=== PATIENT | male | born 1950 | race Caucasian/White ===

== ENCOUNTER 2015-12-20 12:55 | Outpatient (CLI) | payer BC ==
[~2015-12-20 12:55] MED LIST: ASP81CT PO; CARV3.122 PO; GBPN300C PO; LEVO125T PO; OMEP20TA2 PO; RAMI5CAP PO
--- OUTSIDE RECORDS SUMMARY | 2015-12-20 13:03 | XMS REPORT | Continuity of Care Document ---
Author Author [facility] Organization [facility] Address Unknown Phone Unavailable Support Name Relationship Address Phone DAVE HOLDER MD Caregiver [address], [address] [place] [address] JYOTSNA ALPHONSO Charmaine Caregiver [address] [place] [address] ELIUD HUMPHRIES Next Of Kin [address] [place] [id number] Insurance Providers Payer Name Policy Number Subscriber Name Relationship [facility] [id number] Taylor Humphries 18 Self / Same As Patient Advance Directives Directive Response Recorded Date/Time Advance Directives No 10/13/14 7:25am Health Care Power of Beater Out No 10/13/14 7:25am Organ Donor N STATES HE'S DONATING BODY TO [facility] 10/13/14 7:25am Resuscitation Status Full Code 10/13/14 7:25am Problems No known problems or medical conditions. Medications Medication Dose Route Sig Days/Qty Instructions Order Date Discontinued Date Status Aspirin 81 Mg PO DAILY 10/15/12 10/13/14 Discontinued Omeprazole 20 Mg PO DAILY 10/15/12 Active Carvedilol (Coreg) 1 Each PO TWICE A DAY 10/15/12 Active Levothyroxine Sodium 1 Each PO DAILY 10/15/12 Active Gabapentin 300 Mg PO TWICE A DAY 10/15/12 10/11/14 Discontinued Ramipril 5 Mg PO DAILY 10/11/14 Active Social History Social History Problem Response Recorded Date/Time Recent Foreign Travel Yes 10/13/2014 7:33am Smoking Status Never a Smoker 10/13/2014 7:30am Do you dip or chew tobacco? No 10/13/2014 7:30am Query Response Start Date Stop Date Smoking Status Never a Smoker Hospital Discharge Instructions No hospital discharge instructions. Plan of Care No plan of care. Functional Status No functional status results. Allergies, Adverse Reactions, Alerts Allergen Type Severity Reaction Status Last Updated NKANo Known Allergies Allergy Unknown Active 06/30/06 Immunizations Name Given Type Date of Pneumonia Vaccine 10/13/12 Historical Date of Influenza Vaccine 09/13/14 Historical Vital Signs Acute Vital Signs Vital Response Date/Time Temperature (Fahrenheit) 96.9 degrees F (97.6 - 99.5) Temperature (Calculated Celsius) 36.10688 degrees C (36.4 - 37.5) Temperature Source Tympanic Pulse Rate (adult) 78 bpm (60 - 90) Respiratory Rate 18 bpm (12 - 24) O2 Sat by Pulse Oximetry 84 % (88 - 100) Blood Pressure 121/88 mm Hg Pain Pain Intensity 0 Height (Feet) 5 feet Height (Inches) 9.00 inches Height (Calculated Centimeters) 175.446695 cm Weight (Pounds) 188 pounds Weight (Calculated Grams) 24196.366 gm Weight (Calculated Kilograms) 85.979982 kilograms Calculated BMI 27.76 Results No known relevant diagnostic tests, laboratory data and/or discharge summary. Procedures Procedure Status Date Provider(s) Esophagogastroduodenoscopy (EGD) with dilation completed 10/13/14 DAVE HOLDER MD Diagnostic colonoscopy completed 10/13/14 DAVE HOLDER MD Encounters Encounter Location Date/Time Registered [facility] Day [facility] 10/13/14 7:03am Registered Clinic [facility] 10/11/14 5:54am
[2015-12-20 13:11] LABS: BASOPHILS # (AUTO) 0.1 10^3/uL (0.0-0.1); BASOPHILS % (AUTO) 1 % (0-10); EOSINOPHILS # (AUTO) 0.2 10^3/uL (0.0-0.3); EOSINOPHILS % (AUTO) 3 % (0-10); LYMPHOCYTES # (AUTO) 2.7 X 10^3 (1.0-4.0); LYMPHOCYTES % (AUTO) 31 % (12-44); MEAN CORPUSCULAR HEMOGLOBIN 30 PG (25-34); MEAN CORPUSCULAR HGB CONC 34 G/DL (32-36); MEAN CORPUSCULAR VOLUME 88 FL (80-99); MEAN PLATELET VOLUME 9.5 FL (7.4-10.4); MONOCYTES # (AUTO) 1.4 X 10^3 (0.0-1.0); MONOCYTES % (AUTO) 15 % (0-12); NEUTROPHILS # (AUTO) 4.4 X 10^3 (1.8-7.8); NEUTROPHILS % (AUTO) 50 % (42-75); PLATELET COUNT 336 10^3/uL (130-400); RED BLOOD COUNT 5.51 10^6/uL (4.35-5.85); RED CELL DISTRIBUTION WIDTH 14.8 % (10.0-14.5); WHITE BLOOD COUNT 8.8 10^3/uL (4.3-11.0)
[2015-12-20 14:04] LABS: ALANINE AMINOTRANSFERASE 24 U/L (0-55); ALBUMIN 3.9 G/DL (3.2-4.5); ANION GAP 9 MMOL/L (5-14); ASPARTATE AMINO TRANSFERASE 23 U/L (5-34); BILIRUBIN,TOTAL 0.4 MG/DL (0.1-1.0); BLOOD UREA NITROGEN 12 MG/DL (7-18); BUN/CREATININE RATIO 12; CALCIUM 8.9 MG/DL (8.5-10.1); CARBON DIOXIDE 28 MMOL/L (21-32); CHLORIDE 103 MMOL/L (98-107); CREATININE SERUM 1.04 MG/DL (0.60-1.30); GFR ESTIMATED > 60; GLUCOSE 99 MG/DL (70-105); LACTATE DEHYDROGENASE 241 U/L (125-220); POTASSIUM 4.1 MMOL/L (3.6-5.0); SODIUM 140 MMOL/L (135-145); TOTAL PROTEIN 7.3 G/DL (6.4-8.2)
== END 2016-12-15 08:46 ==
LOC: ONC 12:55
PROVIDERS: ATTEND Internal Medicine Hematology & Oncology
DX: C81.99 Hodgkin lymphoma, unspecified, extranodal and solid organ sites (principal); K22.70 Barrett's esophagus without dysplasia; I10 Essential (primary) hypertension; E78.5 Hyperlipidemia, unspecified; E03.9 Hypothyroidism, unspecified; Z79.899 Other long term (current) drug therapy
CPT/HCPCS: 36415; 80053; 83615; 85025; 99213

== ENCOUNTER → 2016-12-15 | Outpatient (CLI) | payer MEDICARE ==
--- OUTSIDE RECORDS SUMMARY | 2016-12-15 08:52 | XMS REPORT | Continuity of Care Document ---
Author Author [facility] Organization [facility] Address Unknown Phone Unavailable Care Team Providers Care Military Communications Specialist Name Role Phone DAVE HOLDER MD PCP Insurance Providers Payer Name Policy Number Subscriber Name Relationship [facility] [id number] Taylor Humphries 18 Self / Same As Patient Advance Directives Directive Response Recorded Date/Time Advance Directives No 07/20/15 7:30am Health Care Power of Lock And Dam Equipment Repairer No 07/20/15 7:30am Organ Donor N STATES HE'S DONATING BODY TO [facility] 07/20/15 7:30am Problems No problem information available. Medications Current Home Medications Medication Dose Units Route Directions Days/Qty Instructions Start Date Omeprazole 20 Mg 20 Mg Oral Daily 10/15/12 Carvedilol (Coreg) 3.125 Mg 1 Each Oral Twice A Day 10/15/12 Levothyroxine Sodium 125 Mcg 1 Each Oral Daily 10/15/12 Ramipril 5 Mg 5 Mg Oral Daily 10/11/14 Past Home Medications Medication Directions Ordered Status Aspirin 81 Mg Chew, 81 Mg Oral Daily 10/15/12 Discontinued Gabapentin 300 Mg Cap, 300 Mg Oral Twice A Day 10/15/12 Discontinued Social History Social History Problem Response Recorded Date/Time Recent Foreign Travel N SEE [place] 12/20/2015 12:54pm Do you dip or chew tobacco? No 07/20/2015 7:27am Hospital Discharge Instructions No hospital discharge instructions. Plan of Care Discharge Date 12/15/16 8:46am Prescriptions See Medication Section Functional Status No functional status results. Allergies, Adverse Reactions, Alerts Allergen Type Severity Reaction Status Last Updated NKANo Known Allergies Allergy Unknown Active 06/30/06 Immunizations No immunization records. Vital Signs No known vital signs results. Results Laboratory Results Test Name Result Units Flags Reference Collection Date/Time Result Date/ Time Comments White Blood Count 8.8 10^3/uL 4.3-11.0 12/20/2015 1:07pm 12/20/2015 1: 15pm Red Blood Count 5.51 10^6/uL 4.35-5.85 12/20/2015 1:07pm 12/20/2015 1: 15pm Hemoglobin 16.3 G/DL 13.3-17.7 12/20/2015 1:07pm 12/20/2015 1:15pm Hematocrit 48 % 40-54 12/20/2015 1:pm 12/20/2015 1:15pm Mean Corpuscular Volume 88 FL 80-99 12/20/2015 1:07pm 12/20/2015 1: 15pm Mean Corpuscular Hemoglobin 30 PG 25-34 12/20/2015 1:07pm 12/20/2015 1: 15pm Mean Corpuscular Hemoglobin Concent 34 G/DL 32-36 12/20/2015 1:07pm 09/2016 1:15pm Red Cell Distribution Width 14.8 % H 10.0-14.5 12/20/2015 1:07pm 2015 1:15pm Platelet Count 336 10^3/uL 130-400 12/20/2015 1:07pm 12/20/2015 1:15pm Mean Platelet Volume 9.5 FL 7.4-10.4 12/20/2015 1:pm 12/20/2015 1: 15pm Neutrophils (%) (Auto) 50 % 42-75 12/20/2015 1:pm 12/20/2015 1:15pm Lymphocytes (%) (Auto) 31 % 12-44 12/20/2015 1:07pm 12/20/2015 1:15pm Monocytes (%) (Auto) 15 % H 0-12 12/20/2015 1:07pm 12/20/2015 1:15pm Eosinophils (%) (Auto) 3 % 0-10 12/20/2015 1:07pm 12/20/2015 1:15pm Basophils (%) (Auto) 1 % 0-10 12/20/2015 1:07pm 12/20/2015 1:15pm Neutrophils # (Auto) 4.4 X 10^3 1.8-7.8 12/20/2015 1:07pm 12/20/2015 1: 15pm Lymphocytes # (Auto) 2.7 X 10^3 1.0-4.0 12/20/2015 1:07pm 12/20/2015 1: 15pm Monocytes # (Auto) 1.4 X 10^3 H 0.0-1.0 12/20/2015 1:07pm 12/20/2015 1: 15pm Eosinophils # (Auto) 0.2 10^3/uL 0.0-0.3 12/20/2015 1:07pm 12/20/2015 1 :15pm Basophils # (Auto) 0.1 10^3/uL 0.0-0.1 12/20/2015 1:07pm 12/20/2015 1: 15pm Sodium Level 140 MMOL/L 135-145 12/20/2015 1:07pm 12/20/2015 2:04pm Potassium Level 4.1 MMOL/L 3.6-5.0 12/20/2015 1:07pm 12/20/2015 2:04pm Chloride Level 103 MMOL/L 98-107 12/20/2015 1:07pm 12/20/2015 2:04pm Carbon Dioxide Level 28 MMOL/L 21-32 12/20/2015 1:07pm 12/20/2015 2: 04pm Anion Gap 9 MMOL/L 5-14 12/20/2015 1:07pm 12/20/2015 2:04pm Blood Urea Nitrogen 12 MG/DL 7-18 12/20/2015 1:07pm 12/20/2015 2:04pm Creatinine 1.04 MG/DL 0.60-1.30 12/20/2015 1:07pm 12/20/2015 2:04pm BUN/Creatinine Ratio 12 12/20/2015 1:07pm 12/20/2015 2:04pm Estimat Glomerular Filtration Rate > 60 12/20/2015 1:07pm 2015 2:04pm GFR INTERPRETIVE DATA UNITS FOR ESTIMATED GFR (eGFR): mL/min/1.73 M2 REFERENCE RANGE FOR ESTIMATED GFR (eGFR) eGFR NORMAL eGFR >60 MODERATELY DECREASED eGFR 30-59 SEVERLY DECREASED eGFR 15-29 KIDNEY FAILURE <15 (OR DIALYSIS) Glucose Level 99 MG/DL 70-105 12/20/2015 1:07pm 12/20/2015 2:04pm Calcium Level 8.9 MG/DL 8.5-10.1 12/20/2015 1:07pm 12/20/2015 2:04pm Total Bilirubin 0.4 MG/DL 0.1-1.0 12/20/2015 1:07pm 12/20/2015 2:04pm Alkaline Phosphatase 85 U/L 40-136 12/20/2015 1:07pm 12/20/2015 2:04pm Aspartate Amino Transf (AST/SGOT) 23 U/L 5-34 12/20/2015 1:07pm 2015 2:04pm Alanine Aminotransferase (ALT/SGPT) 24 U/L 0-55 12/20/2015 1:07pm 12/20 2:04pm Lactate Dehydrogenase 241 U/L H 125-220 12/20/2015 1:07pm 12/20/2015 2: 04pm Total Protein 7.3 G/DL 6.4-8.2 12/20/2015 1:07pm 12/20/2015 2:04pm Albumin 3.9 G/DL 3.2-4.5 12/20/2015 1:07pm 12/20/2015 2:04pm Procedures No known history of procedures. Encounters Encounter Location Arrival/Admit Date Discharge/Depart Date Attending Provider Departed Clinic [facility] 12/20/15 12:55pm 12/15/16 8: 46am ALPHONSO GOYAL
[2016-12-15 09:05] LABS: BASOPHILS # (AUTO) 0.1 10^3/uL (0.0-0.1); BASOPHILS % (AUTO) 1 % (0-10); EOSINOPHILS # (AUTO) 0.1 10^3/uL (0.0-0.3); EOSINOPHILS % (AUTO) 2 % (0-10); LYMPHOCYTES # (AUTO) 1.9 X 10^3 (1.0-4.0); LYMPHOCYTES % (AUTO) 38 % (12-44); MEAN CORPUSCULAR HEMOGLOBIN 30 PG (25-34); MEAN CORPUSCULAR HGB CONC 34 G/DL (32-36); MEAN CORPUSCULAR VOLUME 89 FL (80-99); MEAN PLATELET VOLUME 9.4 FL (7.4-10.4); MONOCYTES # (AUTO) 0.8 X 10^3 (0.0-1.0); MONOCYTES % (AUTO) 17 % (0-12); NEUTROPHILS # (AUTO) 2.1 X 10^3 (1.8-7.8); NEUTROPHILS % (AUTO) 42 % (42-75); PLATELET COUNT 303 10^3/uL (130-400); RED BLOOD COUNT 4.97 10^6/uL (4.35-5.85); RED CELL DISTRIBUTION WIDTH 14.8 % (10.0-14.5); WHITE BLOOD COUNT 4.9 10^3/uL (4.3-11.0)
[2016-12-15 09:37] LABS: ALANINE AMINOTRANSFERASE 25 U/L (0-55); ALBUMIN 3.7 G/DL (3.2-4.5); ANION GAP 8 MMOL/L (5-14); ASPARTATE AMINO TRANSFERASE 28 U/L (5-34); BILIRUBIN,TOTAL 0.5 MG/DL (0.1-1.0); BLOOD UREA NITROGEN 13 MG/DL (7-18); BUN/CREATININE RATIO 16; CALCIUM 8.7 MG/DL (8.5-10.1); CARBON DIOXIDE 26 MMOL/L (21-32); CHLORIDE 104 MMOL/L (98-107); CREATININE SERUM 0.79 MG/DL (0.60-1.30); GFR ESTIMATED > 60; GLUCOSE 82 MG/DL (70-105); LACTATE DEHYDROGENASE 197 U/L (125-220); POTASSIUM 4.1 MMOL/L (3.6-5.0); SODIUM 138 MMOL/L (135-145); TOTAL PROTEIN 6.7 G/DL (6.4-8.2)
== END ==
LOC: ONC 08:49
PROVIDERS: ATTEND Internal Medicine Hematology & Oncology
DX: C81.99 Hodgkin lymphoma, unspecified, extranodal and solid organ sites (principal); K22.70 Barrett's esophagus without dysplasia; I10 Essential (primary) hypertension; E78.5 Hyperlipidemia, unspecified; E03.9 Hypothyroidism, unspecified; Z79.899 Other long term (current) drug therapy
CPT/HCPCS: 36415; 80053; 83615; 85025; 99213

== ENCOUNTER → 2016-12-18 | Outpatient (CLI) | payer MEDICARE, OTHER ==
--- OUTSIDE RECORDS SUMMARY | 2016-12-18 05:41 | XMS REPORT | Continuity of Care Document ---
Author Author [facility] Organization [facility] Address Unknown Phone Unavailable Care Team Providers Care Active Directory Administrator Name Role Phone DAVE HOLDER MD PCP Insurance Providers Payer Name Policy Number Subscriber Name Relationship [facility] [id number] Taylor Humphries 18 Self / Same As Patient Advance Directives Directive Response Recorded Date/Time Advance Directives No 07/20/15 7:30am Health Care Power of Speech Pathology Supervisor No 07/20/15 7:30am Organ Donor N STATES [...] Discharge/Depart Date Attending Provider Departed Clinic [facility] 12/20/15 12:55pm 12/15/16 8: 46am ALPHONSO GOYAL
== END ==
LOC: PREOP 05:38
PROVIDERS: ATTEND Internal Medicine
DX: Z01.818 Encounter for other preprocedural examination (principal); K22.70 Barrett's esophagus without dysplasia

== ENCOUNTER → 2016-12-19 | Day surgery (SDC) | payer MEDICARE, OTHER ==
[~2016-12-19] VITALS: Ht 175.3 cm; Wt 85.3 kg
[~2016-12-19] MED LIST changes: +D5 LR IV SOLUTION 1,000 ML IV ONE; +D5 LR IV SOLUTION 1,000 ML IV STA; +FLUMAZENIL (ROMAZICON) 0.1 MG/ML 5 ML VIAL INJ PRN; +HURRICAINE EXT TUBE (BENZOCAINE) ONE; +HURRICAINE EXT TUBE (BENZOCAINE) XX PRN; +LIDOCAINE JELLY 2% (XYLOCAINE) 5 ML TUBE MM PRN; +LIDOCAINE JELLY 2% (XYLOCAINE) 5 ML TUBE ONE; +MIDAZOLAM 2 MG/2 ML (VERSED) VIAL ONE; +NALOXONE 0.4 MG/ML 1 ML (NARCAN) VIAL IVP PRN; +fentaNYL INJECTION 100 MCG/2 ML AMP ONE
--- OUTSIDE RECORDS SUMMARY | 2016-12-19 09:43 | XMS REPORT | Continuity of Care Document ---
Author Author [facility] Organization [facility] Address Unknown Phone Unavailable Care Team Providers Care Cardio Clinician Name Role Phone DAVE HOLDER MD PCP Insurance Providers Payer Name Policy Number Subscriber Name Relationship [facility] [id number] Taylor Humphries 18 Self / Same As Patient Advance Directives Directive Response Recorded Date/Time Advance Directives No 07/20/15 7:30am Health Care Power of Map Compiler No 07/20/15 7:30am Organ Donor N STATES [...] Discharge/Depart Date Attending Provider Departed Clinic [facility] 12/20/15 12:55pm 12/15/16 8: 46am ALPHONSO GOYAL
--- OUTSIDE RECORDS SUMMARY | 2016-12-19 09:44 | XMS REPORT | Continuity of Care Document ---
Author Author [facility] Organization [facility] Address Unknown Phone Unavailable Care Team Providers Care Sales Clerk Supervisor Name Role Phone DAVE HOLDER MD PCP Insurance Providers Payer Name Policy Number Subscriber Name Relationship [facility] [id number] Taylor Humphries 18 Self / Same As Patient Advance Directives Directive Response Recorded Date/Time Advance Directives No 07/20/15 7:30am Health Care Power of Corrective Therapy Aide No 07/20/15 7:30am Organ Donor N STATES [...] Discharge/Depart Date Attending Provider Departed Clinic [facility] 12/20/15 12:55pm 12/15/16 8: 46am ALPHONSO GOYAL
--- NOTE | 2016-12-19 09:48 | HISTORY AND PHYSICAL ---
DICTATING PHYSICIAN: Dr. Jansen DATE OF ADMISSION: 12/19/2016 Mr. Esquivel is a 66-year-old white male undergoing EGD for surveillance due to history of long segment Valdovinos's esophagus. Last screening study was done over a year and a half ago. At times he has had low grade dysplasia. He has never been noted to have high grade dysplasia. He reports that he has had some fatigue and wanted to know if it had due to a switch to generic thyroid preparation. He has a history of Hodgkin's lymphoma with past mantle radiation. He had initial disease several decades ago with mantle radiation several decades ago, likely resulting in his hypothyroidism. He actually had recurrence of Hodgkin's disease in 2006 diagnosed with colon recurrence. He last underwent colonoscopy in October, that was unremarkable. He denies dysphasia or odynophagia and reports as long as he takes his proton pump inhibitor therapy in the form of omeprazole 20 mg b.i.d. he has no heartburn symptoms. PHYSICAL EXAMINATION: Physical examination reveals a well-appearing white male in no acute distress. NECK: Reveals no JVD, adenopathy or bruits. CHEST: Clear. CV: Reveals a regular rate and rhythm without murmur, S3 or S4. ABDOMEN: Soft, supple without masses, organomegaly or tenderness. EXTREMITIES: Reveal no cyanosis, clubbing, or edema. Additional history was significant for 2 episodes of lightheadedness; they both happened standing and only lasted for several seconds. They were not associated with any sensation of palpitations or heart racing, he had had them in the past and the last one occurred a week ago. We discussed the importance of hydration if he continues to have them. We did discuss likely need for event recording. We did send off TSH today and he was set-up for EGD for surveillance purposes due to Valdovinos's esophagus on 12/19. Job ID: [id number] Dictated Date: 12/17/2016 17:12:00 Sail Repairer Date: 12/18/2016 09:57:35/radha
[2016-12-19 10:19] VITALS: BP 126/71
[2016-12-19] MEDS: fentaNYL INJECTION 100 MCG/2 ML AMP IVP PRN ×2 (11:24→11:28)
[2016-12-19] MEDS: MIDAZOLAM 2 MG/2 ML (VERSED) VIAL IVP PRN ×2 (11:25→11:28)
--- NOTE | 2016-12-19 11:55 | Pre-Op Note & Conscious Sedat ---
Pre-Operative Progress Note H&P Reviewed The H&P was reviewed, patient examined and no changes noted. Date H&P Reviewed: Dec 19, 2016 Time H&P Reviewed: 11:05 Conscious Sedation Pre-Proced ASA Class: 2 Airway Mallampati Classification: ([place] appropriate class) I. II. III, IV Lungs Heart ASA score ASA 1: a normal healthy patient ASA 2: a patient with a mild systemic disease (mid diabetes, controlled hypertension, obesity ASA 3: a patient with a severe systemic disease that limits activity (angina , COPD, prior Myocardial infarction) ASA 4: a patient with an incapacitating disease that is a constant threat to life (CHF, renal failure) ASA 5: a moribund patient not expected to survive 24 hrs. (ruptured aneurysm) ASA 6: a declared brain patient whose organs are being harvested. For emergent operations, add the letter E after the classification Grade 2 Sedation Plan: Analgesia, Amnesia, Plan communicated to team members, Discussed options with patient/fam, Discussed risks with patient/fam Note The patient is an appropriate candidate to undergo the planned procedure, sedation, and anesthesia. The patient immediately re-assessed prior to indication. DAVE HOLDER MD Dec 19, 2016 11:55
[2016-12-19 12:20] VITALS: BP 125/66
[2016-12-19 13:00] VITALS: BP 124/83
[2016-12-19 13:16] VITALS: BP 124/83
--- NOTE | 2016-12-21 12:25 | PROCEDURE REPORT ---
PROCEDURE PHYSICIAN: DAVE HOLDER DATE OF PROCEDURE: 12/19/2016 EGD was performed for surveillance purposes with a history of long segment Valdovinos's disease. The patient was placed in left lateral decubitus position. The endoscope was inserted in the oral cavity and under direct visualization the esophagus was intubated. The endoscope was passed down the esophagus, into the stomach, through the stomach, into the duodenum, and into second portion of the duodenum. Careful inspection was made as the endoscope was withdrawn. The patient tolerated the procedure well. FINDINGS: The proximal and midesophagus were unremarkable. Beginning at 32 cm from the distal esophagus were again changes compatible with Valdovinos's esophagus extending to 40 cm at the proximal level of the gastroesophageal junction. No evidence for ulceration was noted. No obvious evidence for tumor was noted. Viewing was performed under standard as well as blue lighting and photographs were obtained. Four-quadrant biopsies were obtained from 32 cm roughly to 34 to 35 cm circumference as well as 38 to 39 cm circumference, and submitted for histopathology. The cardia, fundus, antrum, pylorus, the pyloric channel, the duodenum, the duodenal bulb and the second portion of the duodenum were unremarkable. ASSESSMENT: Valdovinos's esophagus was again noted without evidence to suggest malignancy to gross inspection. There does not appear to be progression with approximately 8 cm of distal esophageal involvement again being noted. We will wait on histopathology report. This was an otherwise unremarkable EGD. We will have the patient continue b.i.d. proton pump inhibitor therapy indefinitely with future surveillance EGD recommendations pending histopathology evaluation. Sincerely, Dave Holder Job ID: [id number] Dictated Date: 12/19/2016 19:17:25 Human Resource Adviser Date: 12/21/2016 12:18:49 / radha [facility]
== END | disposition home or self-care (01) ==
LOC: ENDO 09:39
PROVIDERS: ATTEND Internal Medicine
DX: K22.70 Barrett's esophagus without dysplasia (principal)
CPT/HCPCS: 88305

== ENCOUNTER 2017-02-02 08:27 | Outpatient (RCR) | payer MEDICARE, OTHER ==
--- OUTSIDE RECORDS SUMMARY | 2017-01-07 08:05 | XMS REPORT | Continuity of Care Document ---
Author Author [facility] Organization [facility] Address Unknown Phone Unavailable Care Team Providers Care Biodiesel Division Manager Name Role Phone DAVE HOLDER MD PCP Insurance Providers Payer Name Policy Number Subscriber Name Relationship [facility] [id number] Taylor Humphries 18 Self / Same As Patient Advance Directives Directive Response Recorded Date/Time Advance Directives No 07/20/15 7:30am Health Care Power of Chemicals Distiller No 07/20/15 7:30am Organ Donor N STATES [...] Discharge/Depart Date Attending Provider Departed Clinic [facility] 12/20/15 12:55pm 12/15/16 8: 46am ALPHONSO GOAYL
[~2017-02-02 08:27] MED LIST changes: -D5 LR IV SOLUTION 1,000 ML IV ONE; -D5 LR IV SOLUTION 1,000 ML IV STA; -FLUMAZENIL (ROMAZICON) 0.1 MG/ML 5 ML VIAL INJ PRN; -HURRICAINE EXT TUBE (BENZOCAINE) ONE; -HURRICAINE EXT TUBE (BENZOCAINE) XX PRN; -LIDOCAINE JELLY 2% (XYLOCAINE) 5 ML TUBE MM PRN; -LIDOCAINE JELLY 2% (XYLOCAINE) 5 ML TUBE ONE; -MIDAZOLAM 2 MG/2 ML (VERSED) VIAL ONE; -NALOXONE 0.4 MG/ML 1 ML (NARCAN) VIAL IVP PRN; -fentaNYL INJECTION 100 MCG/2 ML AMP ONE
== END 2017-04-07 | disposition home or self-care (01) ==
LOC: CARD 08:27
PROVIDERS: ATTEND Internal Medicine
DX: R55 Syncope and collapse (principal)
CPT/HCPCS: 93270

== ENCOUNTER → 2017-12-14 | Outpatient (CLI) | payer MEDICARE, OTHER ==
[~2017-12-14] MED LIST changes: +LEVO125T6 PO; +OMEP20CA12 PO
[2017-12-14 09:16] LABS: BASOPHILS # (AUTO) 0.1 10^3/uL (0.0-0.1); BASOPHILS % (AUTO) 2 % (0-10); EOSINOPHILS # (AUTO) 0.1 10^3/uL (0.0-0.3); EOSINOPHILS % (AUTO) 2 % (0-10); HEMATOCRIT 47 % (40-54); HEMOGLOBIN 15.8 G/DL (13.3-17.7); LYMPHOCYTES # (AUTO) 1.8 X 10^3 (1.0-4.0); LYMPHOCYTES % (AUTO) 33 % (12-44); MEAN CORPUSCULAR HEMOGLOBIN 30 PG (25-34); MEAN CORPUSCULAR HGB CONC 34 G/DL (32-36); MEAN CORPUSCULAR VOLUME 90 FL (80-99); MEAN PLATELET VOLUME 9.5 FL (7.4-10.4); MONOCYTES % (AUTO) 18 % (0-12); NEUTROPHILS # (AUTO) 2.5 X 10^3 (1.8-7.8); NEUTROPHILS % (AUTO) 46 % (42-75); PLATELET COUNT 321 10^3/uL (130-400); RED BLOOD COUNT 5.19 10^6/uL (4.35-5.85); RED CELL DISTRIBUTION WIDTH 14.8 % (10.0-14.5); WHITE BLOOD COUNT 5.3 10^3/uL (4.3-11.0)
[2017-12-14 09:37] LABS: ALANINE AMINOTRANSFERASE 18 U/L (0-55); ALBUMIN 3.9 GM/DL (3.2-4.5); ALKALINE PHOSPHATASE 66 U/L (40-136); BILIRUBIN,TOTAL 0.5 MG/DL (0.1-1.0); BUN/CREATININE RATIO 14; CALCIUM 9.2 MG/DL (8.5-10.1); CARBON DIOXIDE 27 MMOL/L (21-32); CHLORIDE 101 MMOL/L (98-107); GFR ESTIMATED > 60; POTASSIUM 4.1 MMOL/L (3.6-5.0); SODIUM 140 MMOL/L (135-145); TOTAL PROTEIN 7.5 GM/DL (6.4-8.2)
[2017-12-14 09:48] LABS: GLUCOSE 60 MG/DL (70-105)
== END ==
LOC: ONC 08:56
PROVIDERS: ATTEND Internal Medicine Hematology & Oncology
DX: C81.99 Hodgkin lymphoma, unspecified, extranodal and solid organ sites (principal); I10 Essential (primary) hypertension; E78.5 Hyperlipidemia, unspecified; E03.9 Hypothyroidism, unspecified; Z79.899 Other long term (current) drug therapy
CPT/HCPCS: 36415; 80053; 83615; 85025; 99213

== ENCOUNTER 2017-12-15 12:36 | Emergency (ER) | payer MEDICARE, OTHER ==
[~2017-12-15] VITALS: Ht 175.3 cm; Wt 76.2 kg
[~2017-12-15 12:36] MED LIST changes: -LEVO125T6 PO; -OMEP20CA12 PO
[2017-12-15] MEDS ORDERED: OMEP20CA12 PO (12:50)
--- NOTE | 2017-12-15 12:57 | ED Upper Extremity ---
General Chief Complaint: Upper Extremity Stated Complaint: LEFT HAND CAUGHT IN WENCH Nursing Triage Note: ARRIVED VIA AMB TO ROOM 05. STATES HIS LEFT HAND WAS CAUGHT IN A WENCH. Nursing Sepsis Screen: No Definite Risk Source: patient History of Present Illness Date Seen by Provider: Dec 15, 2017 Time Seen by Provider: 12:49 Initial Comments PT ARRIVES VIA POV FROM HOME PT STATES APPROXIMATELY AN HOUR AGO, HE WAS CRANKING A WENCH FOR HAY PETE AND WENCH GOT LOOSE AND HANDLE WAS SPINNING VERY FAST AND STRUCK HIS LEFT HAND HAS PAIN, SWELLING AND DEFORMITY TO LEFT INDEX FINGER--VERY MINIMAL ROM MIDDLE FINGER IS BRUISED AND SLIGHTLY SWOLLEN--SOME LIMITED ROM NO OPEN WOUNDS NO PARESTHESIAS NO PRIOR INJURY TO THIS HAND NO OTHER INJURIES PT IS RIGHT HANDED Allergies and Home Medications Allergies Coded Allergies: NKANo Known Allergies (Verified Allergy, Unknown, 06/30/06) Home Medications Levothyroxine Sodium 125 Mcg Tablet, 125 MCG PO DAILY, (Reported) Omeprazole 20 Mg Capsule.dr, 20 MG PO BID, (Reported) Constitutional: no symptoms reported Musculoskeletal: see HPI Skin: no symptoms reported Psychiatric/Neurological: No Symptoms Reported Past Lbsfhtc-Lwdhvi-Jkezoe Hx Patient Social History Alcohol Use: Denies Use Recreational Drug Use: No Smoking Status: Never a Smoker Recent Foreign Travel: No Contact w/Someone Who Travel: No Recent Infectious Disease Expo: No Recent Hopitalizations: No Immunizations Up To Date Date of Pneumonia Vaccine: Oct 13, 2012 Date of Influenza Vaccine: Sep 13, 2014 Seasonal Allergies Seasonal Allergies: No Surgeries History of Surgeries: Yes (BOWEL RESECTION) Surgeries: Abdominal, Bowel Surgery Respiratory History of Respiratory Disorde: No Cardiovascular History of Cardiac Disorders: Yes Cardiac Disorders: Hypertension Neurological History of Neurological Disord: No Genitourinary History of Genitourinary Disor: No Gastrointestinal History of Gastrointestinal Di: Yes (BOWEL RESECTION 5 YRS AGO) Musculoskeletal History of Musculoskeletal Dis: Yes (GEN. ARTHRITIS) Musculoskeletal Disorders: Arthritis Endocrine History of Endocrine Disorders: Yes (THYROID) Endocrine Disorders: Hypothyroidsim Cancer History of Cancer: Yes (HODGKIN'S ) Cancer: Lymphoma Type of Tx Receive: Chemotherapy Integumentary History of Skin or Integumenta: No Physical Exam Vital Signs Vital Signs - First Documented 12/15/17 13:32 Pulse 78 Resp 18 Pulse Ox 98 Capillary Refill : Less Than 3 Seconds General Appearance: WD/WN, no apparent distress Elbow/Forearm: normal inspection Wrist: Yes normal inspection Hand: Left (LEFT INDEX FINGER WITH DEFORMITY, SWELLING, BRUISING AND MINIMAL ROM. LEFT MIDDLE FINGER WITH MILD SWELLING AND BRUISING AND HAS SOME MILD LIMITED ROM. DORSUM OF HAND IS NORMAL. DISTAL MOTOR/SENSORY/VASCULAR INTACT. ) Neurologic/Tendon: normal sensation Neurologic/Psychiatric: cloth piecer II-XII nml as tested, no motor/sensory deficits, alert, normal mood/affect, oriented x 3 Skin: normal color, warm/dry, other (NO OPEN WOUNDS) Progress/Results/Core Measures Results/Orders My Orders Orders - OMER SMALL DO Hand, Left, 3 Views (12/15/17 12:51) Splint Application Short Arm (12/15/17 13:31) Vital Signs/I&O Vital Sign - Last 12Hours 12/15/17 12/15/17 12:37 13:32 Pulse 78 Resp 18 B/P (MAP) Pulse Ox 98 Diagnostic Imaging Comments XRAYS LEFT HAND--DISPLACED, ANGULATED FRACTURE OF PROXIMAL PHALANX OF SECOND DIGIT. PENDING RADIOLOGIST REVIEW Reviewed: Reviewed by Me Departure Communication (Admissions) Time/Spoke to Consulting Phy: 13:22 Communication/Consulting SPOKE WITH DR OWENS, ORTHOPEDIC SURGEON SHOER. HE ADVISES TO SPLINT FOR COMFORT AND SEND DIRECTLY TO HIS OFFICE. Impression Impression: Primary Impression: DISPLACED FRACTURE LEFT PROXMIAL PHALANX OF INDEX FINGER Disposition: 01 HOME, SELF-CARE (DIRECTLY TO DR. OWENS'S OFFICE) Condition: Stable Departure-Patient Inst. Referrals: DAVE HOLDER MD (PCP/Family) Primary Care Physician CHUY OWENS MD Patient Instructions: Finger Fracture (DC) Add. Discharge Instructions: GO DIRECTLY TO DR. OWENS'S OFFICE All discharge instructions reviewed with patient and/or family. Voiced understanding. OMER SMALL DO Dec 15, 2017 12:57
--- NOTE | 2017-12-15 13:24 | Diagnostic Imaging Report ---
INDICATION: Injury to left hand. AP, oblique, and lateral views left hand are obtained There is a displaced fracture of the proximal aspect of the second proximal phalanx, there is volar displacement and dorsal angulation of the distal fragment. There are degenerative changes throughout the interphalangeal joints. There is no other acute finding. IMPRESSION: Acute second proximal phalangeal fracture as described above. Underlying degenerative changes. Dictated by: Dictated on workstation # [id number]
[2017-12-15 13:32] VITALS: BP 172/103
[2017-12-15] MEDS ORDERED: LEVO125T6 PO (15:50)
--- OUTSIDE RECORDS SUMMARY | 2017-12-16 09:03 | XMS REPORT | Continuity of Care Document ---
Author Author [facility] Organization [facility] Address Unknown Phone Unavailable Allergies Active Description Code Type Severity Reaction Onset Reported/Identified Relationship to Patient Clinical Status Yes NKANo Known Allergies NKA Miscellaneous Allergy Unknown N/A 06/30/2006 Medications There is no data. 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 10/13/2014 DAVE HOLDER MD Ot 553.3 DIAPHRAGMATIC HERNIA 10/13/2014 DAVE HOLDER MD Ot 562.10 DIVERTICULOSIS COLON (W/O MENT OF HEMORR 10/13/2014 DAVE HOLDER MD Ot V76.51 SCREEN MAL NEOP-COLON 01/04/2015 ALPHONSO GOYAL N Ot 201.90 01/04/2015 ALPHONSO GOYAL N Ot 288.63 01/04/2015 ALPHONSO GOYAL N Ot 465.9 01/04/2015 GENEVA GOYALAN N Ot 530.85 01/04/2015 GENEVA GOYALAN N Ot V15.3 01/04/2015 JYOTSNA, BOBAN N Ot V58.69 01/04/2015 JYOTSNA, BOBAN N Ot V87.41 07/20/2015 DAVE HOLDER MD Ot 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 07/20/2015 DAVE HOLDER MD Ot 553.3 DIAPHRAGMATIC HERNIA 07/20/2015 DAVE HOLDER MD Ot 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 07/20/2015 DAVE HOLDER MD Ot K44.9 DIAPHRAGMATIC HERNIA WITHOUT OBSTRUCTION 01/07/2016 ALPHONSO GOYAL N Ot C81.99 01/07/2016 ALPHONSO GOYAL N Ot E03.9 01/07/2016 ALPHONSO GOYAL Ot E78.5 01/07/2016 ALPHONSO GOYAL Ot I10 01/07/2016 ALPHONSO GOYAL Ot K22.70 01/07/2016 ALPHONSO GOYAL Ot Z79.899 12/15/2016 ALPHONSO GOYAL Ot 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, UNSP, EXTRANODAL AND S 12/15/2016 ALPHONSO GOYAL Ot E03.9 HYPOTHYROIDISM, UNSPECIFIED 12/15/2016 ALPHONSO GOYAL Ot E78.5 HYPERLIPIDEMIA, UNSPECIFIED 12/15/2016 ALPHONSO GOYAL Ot I10 ESSENTIAL (PRIMARY) HYPERTENSION 12/15/2016 ALPHONSO GOYAL Ot 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 12/15/2016 ALPHONSO GOYAL Ot Z79.899 OTHER ASSISTED (CURRENT) DRUG THERAPY 12/15/2016 Ot 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 12/15/2016 Ot 553.3 DIAPHRAGMATIC HERNIA 12/15/2016 Ot 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 12/15/2016 Ot 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 12/15/2016 Ot V15.3 HX OF IRRADIATION 12/15/2016 Ot V58.66 LONG-TERM ( CURRENT) USE OF ASPIRIN 12/15/2016 Ot V58.69 OTH MED,LT, CURRENT USE 12/15/2016 Ot 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.41 PERSONAL HISTORY OF ANTINEOPLASTIC CHEMO 12/15/2016 Ot 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 12/15/2016 Ot V72.84 EXAM PRE- OPERATIVE NOS 12/15/2016 Ot 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 12/15/2016 Ot 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 12/15/2016 Ot V15.3 HX OF IRRADIATION 12/15/2016 Ot V58.66 LONG-TERM ( CURRENT) USE OF ASPIRIN 12/15/2016 Ot V58.69 OTH MED,LT, CURRENT USE 12/15/2016 Ot V87.41 PERSONAL HISTORY OF ANTINEOPLASTIC CHEMO 12/15/2016 DAVE HOLDER MD Ot 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 12/15/2016 DAVE HOLDER MD Ot 786.2 COUGH 12/15/2016 JYOTSNA, BOBAN N Ot 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 12/15/2016 JYOTSNA BOBAN N Ot 272.0 PURE HYPERCHOLESTEROLEM 12/15/2016 JYOTSNA, BOBAN N Ot 465.9 ACUTE URI NOS 12/15/2016 JYOTSNA BOBAN N Ot 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 12/15/2016 GENEVA GOYALAN N Ot V15.3 HX OF IRRADIATION 12/15/2016 JYOTSNA BOBAN N Ot V58.66 LONG-TERM (CURRENT) USE OF ASPIRIN 12/15/2016 JYOTSNA BOBAN N Ot V58.69 OTH MED,LT,CURRENT USE 12/15/2016 JYOTSNA, BOBAN N Ot V87.41 PERSONAL HISTORY OF ANTINEOPLASTIC CHEMO 12/15/2016 DAVE HOLDER MD Ot V72.84 EXAM PRE-OPERATIVE NOS 12/15/2016 JYOTSNA BOBAN N Ot 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 12/15/2016 JYOTSNA GENEVAAN N Ot 288.63 MONOCYTOSIS (SYMPTOMATIC) 12/15/2016 JYOTSNA BOBAN N Ot 465.9 ACUTE URI NOS 12/15/2016 JYOTSNA BOBAN N Ot 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 12/15/2016 JYOTSNA ALPHONSO N Ot V15.3 HX OF IRRADIATION 12/15/2016 JYOTSNA GENEVAJORY N Ot V58.69 OTH MED,LT,CURRENT USE 12/15/2016 JYOTSNA BOBAN N Ot V87.41 PERSONAL HISTORY OF ANTINEOPLASTIC CHEMO 12/15/2016 DAVE HOLDER MD Ot 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 12/15/2016 DAVE HOLDER MD Ot V72.84 EXAM PRE-OPERATIVE NOS 12/24/2016 DAVE HOLDER MD Ot 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 12/29/2016 ALPHONSO GOYAL N Ot 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, UNSP, EXTRANODAL AND S 12/29/2016 JYOTSNA BOBJORY N Ot E03.9 HYPOTHYROIDISM, UNSPECIFIED 12/29/2016 JYOTSNA, BOBJORY N Ot E78.5 HYPERLIPIDEMIA, UNSPECIFIED 12/29/2016 JYOTSNA, BOBAN N Ot I10 ESSENTIAL (PRIMARY) HYPERTENSION 12/29/2016 JYOTSNAALPHONSO REID N Ot 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 12/29/2016 JYOTSNA BOBAN N Ot Z79.899 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'S ASSISTANT (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) 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 THERAPY 12/31/2016 GALLO OLIVA, DAVE Lemus Ot 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 12/31/2016 DAVE HOLDER MD, Ot 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 01/06/2017 JYOTSNA, BOBAN N Ot 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, UNSP, EXTRANODAL AND S 01/06/2017 JYOTSNA, BOBAN N Ot E03.9 HYPOTHYROIDISM, UNSPECIFIED 01/06/2017 JYOTSNA, BOBAN N Ot E78.5 HYPERLIPIDEMIA, UNSPECIFIED 01/06/2017 JYOTNSA, BOBAN N Ot I10 ESSENTIAL (PRIMARY) HYPERTENSION 01/06/2017 ALPHONSO GOYAL N Ot 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 01/06/2017 JYOTSNA BOBAN N Ot Z79.899 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'S ASSISTANT (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) DRUG THERAPY 01/12/2017 DAVE HOLDER MD Ot 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 01/21/2017 DAVE HOLDER MD, Ot 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 03/02/2017 DAVE HOLDER MD, Ot R55 SYNCOPE AND COLLAPSE 04/07/2017 DAVE HOLDER MD, Ot R55 SYNCOPE AND COLLAPSE 12/15/2017 ALPHONSO GOYAL N Ot 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, UNSP, EXTRANODAL AND S 12/15/2017 JYOTSNA BOBAN N Ot E03.9 HYPOTHYROIDISM, UNSPECIFIED 12/15/2017 JYOTSNA, BOBAN N Ot E78.5 HYPERLIPIDEMIA, UNSPECIFIED 12/15/2017 JYOTSNA, BOBAN N Ot I10 ESSENTIAL (PRIMARY) HYPERTENSION 12/15/2017 JYOTSNA BOBAN N Ot Z79.899 OTHER ASSISTED (CURRENT) DRUG THERAPY 12/15/2017 DAVE HOLDER MD, Ot 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 Results There is no data. Encounters ACCT No. Visit Date/Time Discharge Status Pt. Type Provider Facility Loc./Unit Complaint [id number] 12/15/2017 15:03:00 12/15/2017 16:02:00 DIS Outpatient CHUY OWENS MD [facility] PREOP LEFT INDEX FINGER PROX.PLALANX C.R., PERC PINNING, [id number] 12/15/2017 12:38:00 12/15/2017 13:32:00 DIS Emergency OMER SMALL DO [facility] ER LEFT HAND CAUGHT IN WENCH [id number] 04/08/2017 08:00:00 04/08/2017 23:59:59 CLS Preadmit DAVE HOLDER MD [facility] CARD PRESYNAPSE [id number] 02/02/2017 08:27:00 04/07/2017 00:01:00 DIS Outpatient DAVE HOLDER MD [facility] CARD PRESYNAPSE [id number] 12/19/2016 09:39:00 12/19/2016 23:59:59 CLS Outpatient DAVE HOLDER MD [facility] ENDO BARRETS ESOPHAGUS [id number] 12/18/2016 05:38:00 12/18/2016 23:59:59 CLS Outpatient DAVE HOLDER MD [facility] PREOP BARRETS ESOPHAGUS [id number] 12/15/2016 08:49:00 12/15/2016 23:59:59 CLS Outpatient ALPHONSO GOYAL [facility] ONC [id number] 12/20/2015 12:55:00 12/15/2016 08:46:00 DIS Outpatient ALPHONSO GOYAL [facility] ONC [id number] 07/20/2015 06:56:00 07/20/2015 09:50:00 DIS Outpatient DAVE HOLDER MD [facility] SDC RODRIGUEZ'S ESOPHOGUS [id number] 07/18/2015 05:42:00 07/18/2015 23:59:59 CLS Outpatient DAVE HOLDER MD [facility] PREOP RODRIGUEZ'S ESOPHOGUS [id number] 12/21/2014 12:37:00 12/21/2014 23:59:59 CLS Outpatient ALPHONSO GOYAL [facility] ONC [id number] 10/13/2014 07:03:00 10/13/2014 11:00:00 DIS Outpatient DAVE HOLDER MD [facility] [place]; SCREENING [id number] 10/11/2014 05:54:00 10/11/2014 23:59:59 CLS Outpatient DAVE HOLDER MD [facility] PREOP [place]; SCREENING [id number] 12/15/2013 13:10:00 12/15/2013 23:59:59 CLS Outpatient ALPHONSO GOYAL [facility] ONC [id number] 08/22/2013 11:36:00 08/22/2013 23:59:59 CLS Outpatient DAVE HOLDER MD [facility] RAD COUGH,H/O HODGKINS LYMPHOMA [id number] 12/16/2017 07:50:00 ACT Outpatient CHUY OWENS MD [facility] LEFT HAND INDEX FINGER FRACTURE [id number] 12/14/2017 08:56:00 ACT Outpatient ALPHONSO GOYAL [facility] ONC [id number] 12/15/2016 08:49:00 Document Registration [id number] 12/15/2012 12:41:00 Document Registration [id number] 10/19/2012 08:01:00 Document Registration [id number] 10/14/2012 10:08:00 Document Registration [id number] 12/18/2011 07:49:00 Document Registration [id number] 12/15/2011 09:24:00 Document Registration [id number] 10/21/2011 07:50:00 Document Registration
== END 2017-12-15 13:32 | disposition home or self-care (01) ==
LOC: EDUNIT# 12:36 → ER 12:38
DX: S62.611A Displaced fracture of proximal phalanx of left index finger, initial encounter for closed fracture (principal); I10 Essential (primary) hypertension; E03.9 Hypothyroidism, unspecified; Z90.49 Acquired absence of other specified parts of digestive tract; Z92.21 Personal history of antineoplastic chemotherapy; Z85.71 Personal history of Hodgkin lymphoma; W23.0XXA Caught, crushed, jammed, or pinched between moving objects, initial encounter
CPT/HCPCS: 73130; 99283

== ENCOUNTER 2017-12-15 15:03 | Outpatient (CLI) | payer MEDICARE, OTHER ==
[~2017-12-15] VITALS: Ht 175.3 cm; Wt 76.2 kg
[~2017-12-15 15:03] MED LIST changes: +OMEP20CA12 PO
[2017-12-15] MEDS ORDERED: LEVO125T6 PO (15:50)
== END 2017-12-15 16:02 ==
LOC: PREOP 15:03
PROVIDERS: ATTEND Orthopaedic Surgery
DX: Z01.818 Encounter for other preprocedural examination (principal); S62.611A Displaced fracture of proximal phalanx of left index finger, initial encounter for closed fracture; X58.XXXA Exposure to other specified factors, initial encounter

== ENCOUNTER 2018-01-18 09:08 | Outpatient (CLI) | payer MEDICARE, OTHER ==
[~2018-01-18] VITALS: Ht 172.7 cm; Wt 76.2 kg
[~2018-01-18 09:08] MED LIST changes: +LEVO125T6 PO
[2018-01-18 09:46] LABS: BASOPHILS # (AUTO) 0.1 10^3/uL (0.0-0.1); BASOPHILS % (AUTO) 1 % (0-10); EOSINOPHILS # (AUTO) 0.1 10^3/uL (0.0-0.3); EOSINOPHILS % (AUTO) 2 % (0-10); HEMATOCRIT 47 % (40-54); LYMPHOCYTES # (AUTO) 1.9 X 10^3 (1.0-4.0); LYMPHOCYTES % (AUTO) 32 % (12-44); MEAN CORPUSCULAR HEMOGLOBIN 30 PG (25-34); MEAN CORPUSCULAR HGB CONC 34 G/DL (32-36); MEAN CORPUSCULAR VOLUME 90 FL (80-99); MEAN PLATELET VOLUME 9.6 FL (7.4-10.4); MONOCYTES # (AUTO) 0.9 X 10^3 (0.0-1.0); MONOCYTES % (AUTO) 16 % (0-12); NEUTROPHILS # (AUTO) 2.8 X 10^3 (1.8-7.8); NEUTROPHILS % (AUTO) 48 % (42-75); PLATELET COUNT 296 10^3/uL (130-400); RED BLOOD COUNT 5.26 10^6/uL (4.35-5.85); RED CELL DISTRIBUTION WIDTH 14.6 % (10.0-14.5); WHITE BLOOD COUNT 5.7 10^3/uL (4.3-11.0)
[2018-01-18 09:50] VITALS: BP 139/87
--- NOTE | 2018-01-18 09:56 | Diagnostic Imaging Report ---
INDICATION: Preoperative evaluation. COMPARISON: 08/22/2013. FINDINGS: 2 views of the chest are obtained. Heart size is normal. The pulmonary vessels appear unremarkable. There is no pneumothorax, mediastinal widening or pleural fluid. Calcified right paratracheal nodes unchanged. The lungs are clear. There is degenerative change of the spine. IMPRESSION: No acute cardiopulmonary abnormality is seen. No interval change from the prior study. Dictated by: Dictated on workstation # [id number]
[2018-01-18 10:04] LABS: BUN/CREATININE RATIO 12; CALCIUM 9.1 MG/DL (8.5-10.1); CARBON DIOXIDE 32 MMOL/L (21-32); CHLORIDE 101 MMOL/L (98-107); CREATININE SERUM 0.83 MG/DL (0.60-1.30); GFR ESTIMATED > 60; GLUCOSE 84 MG/DL (70-105); POTASSIUM 3.9 MMOL/L (3.6-5.0); SODIUM 138 MMOL/L (135-145)
== END 2018-01-18 09:45 | disposition home or self-care (01) ==
LOC: PREOP 09:08
PROVIDERS: ATTEND Otolaryngology Otolaryngology/Facial Plastic Surgery
DX: Z01.810 Encounter for preprocedural cardiovascular examination (principal); Z01.811 Encounter for preprocedural respiratory examination; Z01.812 Encounter for preprocedural laboratory examination; Z11.2 Encounter for screening for other bacterial diseases; C44.310 Basal cell carcinoma of skin of unspecified parts of face
CPT/HCPCS: 36415; 71046; 80048; 85025; 87081; 93005

== ENCOUNTER 2018-03-08 10:45 | Outpatient (CLI) | payer MEDICARE, OTHER ==
[~2018-03-08] VITALS: Ht 172.7 cm; Wt 76.2 kg
[~2018-03-08 10:45] MED LIST changes: +HYDR-3812 PO
== END 2018-03-08 11:44 ==
LOC: PREOP 10:45
PROVIDERS: ATTEND Internal Medicine
DX: Z01.818 Encounter for other preprocedural examination (principal); K22.70 Barrett's esophagus without dysplasia

== ENCOUNTER 2018-03-12 07:47 | Day surgery (SDC) | payer MEDICARE, OTHER ==
[~2018-03-12] VITALS: Ht 172.7 cm; Wt 76.2 kg
--- OUTSIDE RECORDS SUMMARY | 2018-03-12 07:51 | XMS REPORT | Continuity of Care Document ---
Author Author [facility] Organization [facility] Address Unknown Phone Unavailable Allergies Active Description Code Type Severity Reaction Onset Reported/Identified Relationship to Patient Clinical Status Yes NKANo Known Allergies NKA Miscellaneous Allergy Unknown N/A 06/30/2006 Yes No Known Drug Allergies [id number] Drug Allergy Unknown N/A 03/08/2018 Medications There is no data. 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 07/20/2015 DAVE HOLDER MD Ot K44.9 DIAPHRAGMATIC HERNIA WITHOUT OBSTRUCTION 01/07/2016 ALPHONSO GOYAL Ot C81.99 01/07/2016 ALPHONSO GOYAL Ot E03.9 01/07/2016 ALPHONSO GOYAL Ot E78.5 [...] DYSPLASIA 12/15/2016 ALPHONSO GOYAL Ot Z79.899 OTHER [facility] (CURRENT) DRUG THERAPY 12/15/2016 Ot 530.85 RODRIGUEZ'S [...] V87.41 PERSONAL HISTORY OF ANTINEOPLASTIC CHEMO 12/15/2016 GALLO OLIVA, DAVE Lemus Ot 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 12/15/2016 DAVE HOLDER MD Ot 786.2 COUGH 12/15/2016 JYOTSNA, GENEVAAN N Ot 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 12/15/2016 JYOTSNA, BOBAN N Ot 272.0 PURE HYPERCHOLESTEROLEM 12/15/2016 JYOTSNA, BOBAN N Ot 465.9 ACUTE URI NOS 12/15/2016 JYOTSNA, GENEVAAN N Ot 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 12/15/2016 JYOTSNA GENEVAAN N Ot V15.3 HX OF IRRADIATION 12/15/2016 JYOTSNA GENEVAAN N Ot V58.66 LONG-TERM (CURRENT) USE OF ASPIRIN 12/15/2016 JYOTSNAGENEVAAN N Ot V58.69 OTH MED,LT,CURRENT USE 12/15/2016 JYOTSNA BOBAN N Ot V87.41 PERSONAL HISTORY OF ANTINEOPLASTIC CHEMO 12/15/2016 DAVE HOLDER MD Ot V72.84 EXAM PRE-OPERATIVE NOS 12/15/2016 JYOTSNA GENEVAAN N Ot 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 12/15/2016 JYOTSNA ALPHONSO N Ot 288.63 MONOCYTOSIS (SYMPTOMATIC) 12/15/2016 JYOTSNAGENEVAAN N Ot 465.9 ACUTE URI NOS 12/15/2016 JYOTSNA GENEVAAN N Ot 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 12/15/2016 JYOTSNAALPHONSO N Ot V15.3 HX OF IRRADIATION 12/15/2016 JYOTSNAALPHONSO N Ot V58.69 OTH MED,LT,CURRENT USE 12/15/2016 JYOTSNA ALPHONSO N Ot V87.41 PERSONAL HISTORY OF ANTINEOPLASTIC CHEMO 12/15/2016 DAVE HOLDER MD Ot 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 12/15/2016 DAVE HOLDER MD Ot V72.84 EXAM PRE-OPERATIVE NOS 12/24/2016 DAVE HOLDER MD Ot 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 12/29/2016 ALPHONSO GOYAL N Ot 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, UNSP, EXTRANODAL AND S 12/29/2016 ALPHONSO GOYAL N Ot E03.9 HYPOTHYROIDISM, UNSPECIFIED 12/29/2016 ALPHONSO GOYAL N Ot E78.5 HYPERLIPIDEMIA, UNSPECIFIED 12/29/2016 JYOTSNA BOBAN N Ot I10 ESSENTIAL (PRIMARY) HYPERTENSION 12/29/2016 ALPHONSO GOYAL Charmaine Ot 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 12/29/2016 ALPHONSO GOYAL Charmaine Ot Z79.899 OTHER UNDERWRITING CONSULTANT (CURRENT) DRUG THERAPY 12/31/2016 GALLO OLIVA, DAVE Lemus Ot 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 12/31/2016 GALLO OLIVA, DAVE Lemus Ot 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 01/06/2017 JYOTSNA ALPHONSO Montano Ot 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, UNSP, EXTRANODAL AND S 01/06/2017 JYOTSNA GENEVAJORY Charmaine Ot E03.9 HYPOTHYROIDISM, UNSPECIFIED 01/06/2017 ALPHONSO GOYAL Charmaine Ot E78.5 HYPERLIPIDEMIA, UNSPECIFIED 01/06/2017 JYOTSNA ALPHONSO Montano Ot I10 ESSENTIAL (PRIMARY) HYPERTENSION 01/06/2017 JYOTSNAALPHONSO Ot 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 01/06/2017 JYOTSNAALPHONSO Ot Z79.899 OTHER [facility] (CURRENT) DRUG THERAPY 01/12/2017 GALLO OLIVA, DAVE Lemus Ot 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 01/21/2017 DAVE HOLDER MD Ot 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 03/02/2017 GALLO OLIVA, DAVE Lemus Ot R55 SYNCOPE AND COLLAPSE 04/07/2017 DAVE HOLDER MD, Ot R55 SYNCOPE AND COLLAPSE 12/15/2017 OMER SMALL DO Ot E03.9 HYPOTHYROIDISM, UNSPECIFIED 12/15/2017 OMER SMALL DO Ot I10 ESSENTIAL (PRIMARY) HYPERTENSION 12/15/2017 OMER SMALL DO Ot M79.642 PAIN IN LEFT HAND 12/15/2017 OMER SMALL DO Ot S62.611A DISP FX OF PROXIMAL PHALANX OF LEFT INDE 12/15/2017 OMER SMALL DO Ot W23.0XXA CAUGHT, CRUSH, JAMMED, OR PINCHED BETW M 12/15/2017 OMER SMALL DO Ot Z85.71 PERSONAL HISTORY OF H[place]GK[place] LYMPHOMA 12/15/2017 OMER SMALL DO Ot Z90.49 ACQUIRED ABSENCE OF OTHER SPECIFIED PART 12/15/2017 OMER SMALL DO Ot Z92.21 PERSONAL HISTORY OF ANTINEOPLASTIC CHEMO 12/15/2017 JYOTSNA ALPHONSO Montano Ot 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, UNSP, EXTRANODAL AND S 12/15/2017 JYOTSNA, ALPHONSO Montano Ot E03.9 HYPOTHYROIDISM, UNSPECIFIED 12/15/2017 JYOTSNA, ALPHONSO Montano Ot E78.5 HYPERLIPIDEMIA, UNSPECIFIED 12/15/2017 JYOTSNA, ALPHONSO N Ot I10 ESSENTIAL (PRIMARY) HYPERTENSION 12/15/2017 ALPHONSO GOYAL Ot Z79.899 OTHER UNDERWRITING CONSULTANT (CURRENT) DRUG THERAPY 12/15/2017 CHUY OWENS MD, Ot S62.611A DISP FX OF PROXIMAL PHALANX OF LEFT INDE 12/15/2017 CHUY OWENS MD, Ot X58.XXXA EXPOSURE TO OTHER SPECIFIED FACTORS, INI 12/15/2017 CHUY OWENS MD, Ot Z01.818 ENCOUNTER FOR OTHER PREPROCEDURAL EXAMIN 12/15/2017 GALLO OLIVA, DAVE Lemus Ot 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 12/15/2017 GALLO OLIVA, DAVE Lemus Ot R55 SYNCOPE AND COLLAPSE 12/15/2017 ALPHONSO GOYAL Ot 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, UNSP, EXTRANODAL AND S 12/15/2017 ALPHONSO GOYLA Ot E03.9 HYPOTHYROIDISM, UNSPECIFIED 12/15/2017 ALPHONSO GOYAL Ot E78.5 HYPERLIPIDEMIA, UNSPECIFIED 12/15/2017 ALPHONSO GOYAL Ot I10 ESSENTIAL (PRIMARY) HYPERTENSION 12/15/2017 ALPHONSO GOYAL Ot Z79.899 OTHER UNDERWRITING CONSULTANT (CURRENT) DRUG THERAPY 12/16/2017 CHUY OWENS MD Ot E03.9 HYPOTHYROIDISM, UNSPECIFIED 12/16/2017 CHUY OWENS MD, Ot K21.9 GASTRO-ESOPHAGEAL REFLUX DISEASE WITHOUT 12/16/2017 CHUY OWENS MD, Ot S62.611A DISP FX OF PROXIMAL PHALANX OF LEFT INDE 12/16/2017 CHUY OWENS MD Ot W23.0XXA CAUGHT, CRUSH, JAMMED, OR PINCHED BETW M 12/16/2017 CHUY OWENS MD Ot Z11.2 ENCOUNTER FOR SCREENING FOR OTHER BACTER 12/16/2017 CHUY OWENS MD, Ot Z79.899 OTHER UNDERWRITING CONSULTANT (CURRENT) DRUG THERAPY 12/16/2017 CHUY OWENS MD, Ot Z85.71 PERSONAL HISTORY OF [place] LYMPHOMA 12/16/2017 CHUY OWENS MD, Ot Z92.21 PERSONAL HISTORY OF ANTINEOPLASTIC CHEMO 12/16/2017 CHUY OWENS MD Ot Z92.3 PERSONAL HISTORY OF IRRADIATION 12/16/2017 CHUY OWENS MD, Ot S62.611A DISP FX OF PROXIMAL PHALANX OF LEFT INDE 12/16/2017 CHUY OWENS MD, Ot X58.XXXA EXPOSURE TO OTHER SPECIFIED FACTORS, INI 12/16/2017 CHUY OWENS MD, Ot Z01.818 ENCOUNTER FOR OTHER PREPROCEDURAL EXAMIN 12/17/2017 OMER SMALL DO Ot E03.9 HYPOTHYROIDISM, UNSPECIFIED 12/17/2017 OMER SMALL DO Ot I10 ESSENTIAL (PRIMARY) HYPERTENSION 12/17/2017 OMER SMALL DO Ot M79.642 PAIN IN LEFT HAND 12/17/2017 OMER SMALL DO, Ot S62.611A DISP FX OF PROXIMAL PHALANX OF LEFT INDE 12/17/2017 OMER SMALL DO Ot W23.0XXA CAUGHT, CRUSH, JAMMED, OR PINCHED BETW M 12/17/2017 OMER SMALL DO Ot Z85.71 PERSONAL HISTORY OF H[place] LYMPHOMA 12/17/2017 OMER SMALL DO Ot Z90.49 ACQUIRED ABSENCE OF OTHER SPECIFIED PART 12/17/2017 OMER SMALL DO Ot Z92.21 PERSONAL HISTORY OF ANTINEOPLASTIC CHEMO 12/21/2017 CHUY OWENS MD, Ot E03.9 HYPOTHYROIDISM, UNSPECIFIED 12/21/2017 CHUY OWENS MD, Ot K21.9 GASTRO-ESOPHAGEAL REFLUX DISEASE WITHOUT 12/21/2017 CHUY OWENS MD, Ot S62.611A DISP FX OF PROXIMAL PHALANX OF LEFT INDE 12/21/2017 CHUY OWENS MD, Ot W23.0XXA CAUGHT, CRUSH, JAMMED, OR PINCHED BETW M 12/21/2017 CHUY OWENS MD Ot Z11.2 ENCOUNTER FOR SCREENING FOR OTHER BACTER 12/21/2017 CHUY OWENS MD, Ot Z79.899 OTHER UNDERWRITING CONSULTANT (CURRENT) DRUG THERAPY 12/21/2017 CHUY OWENS MD Ot Z85.71 PERSONAL HISTORY OF H[place] LYMPHOMA 12/21/2017 CHUY OWENS MD Ot Z92.21 PERSONAL HISTORY OF ANTINEOPLASTIC CHEMO 12/21/2017 CHUY OWENS MD Ot Z92.3 PERSONAL HISTORY OF IRRADIATION 01/07/2018 ALPHONSO GOYAL Ot 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, UNSP, EXTRANODAL AND S 01/07/2018 ALPHONSO GOYAL Ot E03.9 HYPOTHYROIDISM, UNSPECIFIED 01/07/2018 ALPHONSO GOYAL Ot E78.5 HYPERLIPIDEMIA, UNSPECIFIED 01/07/2018 ALPHONSO GOYAL Ot I10 ESSENTIAL (PRIMARY) HYPERTENSION 01/07/2018 ALPHONSO GOYAL Ot Z79.899 OTHER [facility] (CURRENT) DRUG THERAPY 01/18/2018 CHUY DALAL MD Ot C44.310 BASAL CELL CARCINOMA OF SKIN OF UNSPECIF 01/18/2018 CHUY DALAL MD Ot Z01.810 ENCOUNTER FOR PREPROCEDURAL CARDIOVASCUL 01/18/2018 CHUY DALAL MD Ot Z01.811 ENCOUNTER FOR PREPROCEDURAL RESPIRATORY 01/18/2018 CHUY DALAL MD Ot Z01.812 ENCOUNTER FOR PREPROCEDURAL LABORATORY E 01/18/2018 CHUY DALAL MD Ot Z11.2 ENCOUNTER FOR SCREENING FOR OTHER BACTER 01/19/2018 CHUY DALAL MD Ot C44.310 BASAL CELL CARCINOMA OF SKIN OF UNSPECIF 01/19/2018 CHUY DALAL MD Ot Z01.810 ENCOUNTER FOR PREPROCEDURAL CARDIOVASCUL 01/19/2018 CHUY DALAL MD Ot Z01.811 ENCOUNTER FOR PREPROCEDURAL RESPIRATORY 01/19/2018 CHUY DALAL MD Ot Z01.812 ENCOUNTER FOR PREPROCEDURAL LABORATORY E 01/19/2018 CHUY DALAL MD Ot Z11.2 ENCOUNTER FOR SCREENING FOR OTHER BACTER 01/28/2018 CHUY DALAL MD Ot C44.310 BASAL CELL CARCINOMA OF SKIN OF UNSPECIF 01/28/2018 CHUY DALAL MD Ot E03.9 HYPOTHYROIDISM, UNSPECIFIED 01/28/2018 CHUY DALAL MD Ot K21.9 GASTRO-ESOPHAGEAL REFLUX DISEASE WITHOUT 01/28/2018 CHUY DALAL MD Ot Z79.899 OTHER UNDERWRITING CONSULTANT (CURRENT) DRUG THERAPY 02/04/2018 CHUY DALAL MD Ot C44.310 BASAL CELL CARCINOMA OF SKIN OF UNSPECIF 02/04/2018 CHUY DALAL MD Ot E03.9 HYPOTHYROIDISM, UNSPECIFIED 02/04/2018 CHUY DALAL MD Ot K21.9 GASTRO-ESOPHAGEAL REFLUX DISEASE WITHOUT 02/04/2018 CHUY DALAL MD Ot Z79.899 OTHER UNDERWRITING CONSULTANT (CURRENT) DRUG THERAPY 02/09/2018 CHUY DALAL MD Ot C44.310 BASAL CELL CARCINOMA OF SKIN OF UNSPECIF 02/09/2018 CHUY DALAL MD Ot E03.9 HYPOTHYROIDISM, UNSPECIFIED 02/09/2018 CHUY DALAL MD Ot K21.9 GASTRO-ESOPHAGEAL REFLUX DISEASE WITHOUT 02/09/2018 CHUY DALAL MD Ot Z79.899 OTHER UNDERWRITING CONSULTANT (CURRENT) DRUG THERAPY 02/17/2018 Ot V72.84 EXAM PRE- OPERATIVE NOS 02/17/2018 Ot 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 02/17/2018 Ot 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 02/17/2018 Ot V15.3 HX OF IRRADIATION 02/17/2018 Ot V58.66 LONG-TERM ( CURRENT) USE OF ASPIRIN 02/17/2018 Ot V58.69 OTH MED,LT, CURRENT USE 02/17/2018 Ot V87.41 PERSONAL HISTORY OF ANTINEOPLASTIC CHEMO 02/17/2018 DAVE HOLDER MD Ot 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 02/17/2018 DAVE HOLDER MD Ot 786.2 COUGH 02/17/2018 ALPHONSO GOYAL N Ot 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 02/17/2018 ALPHONSO GOYAL N Ot 272.0 PURE HYPERCHOLESTEROLEM 02/17/2018 ALPHONSO GOYAL N Ot 465.9 ACUTE URI NOS 02/17/2018 ALPHONSO GOYAL N Ot 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 02/17/2018 ALPHONSO GOYAL N Ot V15.3 HX OF IRRADIATION 02/17/2018 ALPHONSO GOYAL N Ot V58.66 LONG-TERM (CURRENT) USE OF ASPIRIN 02/17/2018 ALPHONSO GOYAL Ot V58.69 OTH MED,LT,CURRENT USE 02/17/2018 ALPHONSO GOYAL N Ot V87.41 PERSONAL HISTORY OF ANTINEOPLASTIC CHEMO 02/17/2018 DAVE HOLDER MD Ot V72.84 EXAM PRE-OPERATIVE NOS 02/17/2018 JYOTSNA, BOBAN N Ot 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 02/17/2018 JYOTSNA, BOBAN N Ot 288.63 MONOCYTOSIS (SYMPTOMATIC) 02/17/2018 JYOTSNA BOBAN N Ot 465.9 ACUTE URI NOS 02/17/2018 JYOTSNA BOBAN N Ot 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 02/17/2018 JYOTSNA BOBAN N Ot V15.3 HX OF IRRADIATION 02/17/2018 JYOTSNA BOBAN N Ot V58.69 OTH MED,LT,CURRENT USE 02/17/2018 JYOTSNA BOBAN N Ot V87.41 PERSONAL HISTORY OF ANTINEOPLASTIC CHEMO 02/17/2018 DAVE HOLDER MD Ot 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 02/17/2018 DAVE HOLDER MD, Ot V72.84 EXAM PRE-OPERATIVE NOS 02/17/2018 JYOTSNA BOBAN N Ot 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, UNSP, EXTRANODAL AND S 02/17/2018 JYOTSNA, BOBAN N Ot E03.9 HYPOTHYROIDISM, UNSPECIFIED 02/17/2018 JYOTSNA, BOBAN N Ot E78.5 HYPERLIPIDEMIA, UNSPECIFIED 02/17/2018 JYOTSNA, BOBAN N Ot I10 ESSENTIAL (PRIMARY) HYPERTENSION 02/17/2018 JYOTSNA, BOBAN N Ot 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 02/17/2018 JYOTSNA BOBAN N Ot Z79.899 OTHER UNDERWRITING CONSULTANT (CURRENT) DRUG THERAPY 02/17/2018 DAVE HOLDER MD Ot 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 02/17/2018 DAVE HOLDER MD Ot 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 02/17/2018 DAVE HOLDER MD Ot Z01.818 ENCOUNTER FOR OTHER PREPROCEDURAL EXAMIN 02/17/2018 DAVE HOLDER MD Ot R55 SYNCOPE AND COLLAPSE 02/17/2018 JYOTSNA, BOBAN N Ot 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, UNSP, EXTRANODAL AND S 02/17/2018 JYOTSNA, BOBAN N Ot E03.9 HYPOTHYROIDISM, UNSPECIFIED 02/17/2018 JYOTSNA, BOBAN N Ot E78.5 HYPERLIPIDEMIA, UNSPECIFIED 02/17/2018 JYOTSNA, BOBAN N Ot I10 ESSENTIAL (PRIMARY) HYPERTENSION 02/17/2018 JYOTSNAGENEVA REIDAN N Ot Z79.899 OTHER [facility] (CURRENT) DRUG THERAPY 02/17/2018 Ot V72.84 EXAM PRE- OPERATIVE NOS 02/17/2018 Ot 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 02/17/2018 Ot 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 02/17/2018 Ot V15.3 HX OF IRRADIATION 02/17/2018 Ot V58.66 LONG-TERM ( CURRENT) USE OF ASPIRIN 02/17/2018 Ot V58.69 OTH MED,LT, CURRENT USE 02/17/2018 Ot V87.41 PERSONAL HISTORY OF ANTINEOPLASTIC CHEMO 02/17/2018 DAVE HOLDER MD Ot 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 02/17/2018 DAVE HOLDER MD Ot 786.2 COUGH 02/17/2018 JYOTSNAGENEVA REIDAN N Ot 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 02/17/2018 JYOTSNAGENEVA REIDAN N Ot 272.0 PURE HYPERCHOLESTEROLEM 02/17/2018 JYOTSNA BOBAN N Ot 465.9 ACUTE URI NOS 02/17/2018 JYOTSNA BOBAN N Ot 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 02/17/2018 JYOTSNA BOBAN N Ot V15.3 HX OF IRRADIATION 02/17/2018 JYOTSNA BOBAN N Ot V58.66 LONG-TERM (CURRENT) USE OF ASPIRIN 02/17/2018 JYOTSNA BOBAN N Ot V58.69 OTH MED,LT,CURRENT USE 02/17/2018 JYOTSNAGENEVAAN N Ot V87.41 PERSONAL HISTORY OF ANTINEOPLASTIC CHEMO 02/17/2018 DAVE HOLDER MD Ot V72.84 EXAM PRE-OPERATIVE NOS 02/17/2018 JYOTSNA BOBAN N Ot 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 02/17/2018 JYOTSNA, BOBAN N Ot 288.63 MONOCYTOSIS (SYMPTOMATIC) 02/17/2018 JYOTSNA BOBAN N Ot 465.9 ACUTE URI NOS 02/17/2018 JYOTSNA, BOBAN N Ot 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 02/17/2018 JYOTSNA BOBAN N Ot V15.3 HX OF IRRADIATION 02/17/2018 JYOTSNA BOBAN N Ot V58.69 OTH MED,LT,CURRENT USE 02/17/2018 ALPHONSO GOYAL N Ot V87.41 PERSONAL HISTORY OF ANTINEOPLASTIC CHEMO 02/17/2018 GALLO OLIVA, DAVE Lemus Ot 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 02/17/2018 DAVE HOLDER MD, Ot V72.84 EXAM PRE-OPERATIVE NOS 02/17/2018 JYOTSNA, BOBAN N Ot 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, UNSP, EXTRANODAL AND S 02/17/2018 JYOTSNA BOBAN N Ot E03.9 HYPOTHYROIDISM, UNSPECIFIED 02/17/2018 JYOTSNA, BOBAN N Ot E78.5 HYPERLIPIDEMIA, UNSPECIFIED 02/17/2018 JYOTSNA, BOBAN N Ot I10 ESSENTIAL (PRIMARY) HYPERTENSION 02/17/2018 JYOTSNA, BOBAN N Ot 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 02/17/2018 JYOTSNA, BOBAN N Ot Z79.899 OTHER [facility] (CURRENT) DRUG THERAPY 02/17/2018 DAVE HOLDER MD Ot 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 02/17/2018 DAVE HOLDER MD Ot 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 02/17/2018 DAVE HOLDER MD Ot Z01.818 ENCOUNTER FOR OTHER PREPROCEDURAL EXAMIN 02/17/2018 DAVE HOLDER MD, Ot R55 SYNCOPE AND COLLAPSE 02/17/2018 JYOTSNA, BOBAN N Ot 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, UNSP, EXTRANODAL AND S 02/17/2018 JYOTSNA, BOBAN N Ot E03.9 HYPOTHYROIDISM, UNSPECIFIED 02/17/2018 JYOTSNA, BOBAN N Ot E78.5 HYPERLIPIDEMIA, UNSPECIFIED 02/17/2018 JYOTSNA, BOBAN N Ot I10 ESSENTIAL (PRIMARY) HYPERTENSION 02/17/2018 JYOTSNA, BOBAN N Ot Z79.899 OTHER [facility] (CURRENT) DRUG THERAPY 03/05/2018 DAVE HOLDER MD, Ot 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 03/05/2018 DAVE HOLDER MD Ot Z01.818 ENCOUNTER FOR OTHER PREPROCEDURAL EXAMIN 03/08/2018 DAVE HOLDER MD, Ot R55 SYNCOPE AND COLLAPSE 03/08/2018 DAVE HOLDER MD Ot 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 Results Test Result Range Methicillin resistant Staphylococcus aureus (MRSA) screening culture - 08:15 Methicillin resistant Staphylococcus aureus (MRSA) screening culture NEG NRG Methicillin resistant Staphylococcus aureus (MRSA) screening culture - 09:35 Methicillin resistant Staphylococcus aureus (MRSA) screening culture NEG NRG Encounters ACCT No. Visit Date/Time Discharge Status Pt. Type Provider Facility Loc./Unit Complaint [id number] 03/08/2018 10:45:00 03/08/2018 11:44:00 DIS Outpatient DAVE HOLDER MD [facility] PREOP EGD [id number] 01/28/2018 08:35:00 01/28/2018 14:05:00 DIS Outpatient CHUY DALAL MD [facility] LEFT CHEEK LESION, BASAL CELL CARCINOMA [id number] 01/18/2018 09:08:00 01/18/2018 23:59:59 CLS Outpatient CHUY DALAL MD [facility] PREOP LEFT CHEEK LESION, BASAL CELL CARCINOMA [id number] 12/16/2017 07:50:00 12/16/2017 13:35:00 DIS Outpatient CHUY OWENS MD [facility] LEFT HAND INDEX FINGER FRACTURE [id number] 12/15/2017 15:03:00 12/15/2017 16:02:00 DIS Outpatient CHUY OWENS MD [facility] PREOP LEFT INDEX FINGER PROX.PLALANX C.R., PERC PINNING, [id number] 12/15/2017 12:38:00 12/15/2017 13:32:00 DIS Emergency OMER SMALL DO [facility] ER LEFT HAND CAUGHT IN WENCH [id number] 12/14/2017 08:56:00 12/14/2017 23:59:59 CLS Outpatient ALPHONSO GOYAL [facility] ONC [id number] 04/08/2017 08:00:00 04/08/2017 23:59:59 CLS Preadmit DAVE HOLDER MD [facility] CARD PRESYNAPSE [id number] 02/02/2017 08:27:00 04/07/2017 00:01:00 DIS Outpatient DAVE HOLDER MD [facility] CARD PRESYNAPSE [id number] 12/19/2016 09:39:00 12/19/2016 23:59:59 CLS Outpatient DAVE HOLDRE MD [facility] ENDO BARRETS ESOPHAGUS [id number] 12/18/2016 05:38:00 12/18/2016 23:59:59 CLS Outpatient DAVE HOLDER MD [facility] PREOP BARRETS ESOPHAGUS [id number] 12/15/2016 08:49:00 12/15/2016 23:59:59 CLS Outpatient ALPHONSO GOYAL [facility] ONC [id number] 12/20/2015 12:55:00 12/15/2016 08:46:00 DIS Outpatient ALPHONSO GOYAL [facility] ONC [id number] 07/20/2015 06:56:00 07/20/2015 09:50:00 DIS Outpatient DAVE HOLDER MD [facility] SDC RODRIGUEZ'S ESOPHOGUS [id number] 07/18/2015 05:42:00 07/18/2015 23:59:59 CLS Outpatient DAVE HOLDER MD [facility] PREOP RODRIGUEZ'S ESOPHOGUS [id number] 12/21/2014 12:37:00 12/21/2014 23:59:59 CLS Outpatient ALPHONSO GOYAL [facility] ONC [id number] 10/13/2014 07:03:00 10/13/2014 11:00:00 DIS Outpatient DAVE HOLDER MD [facility] SDC BARRETTS SURVEILLANCE; SCREENING [id number] 10/11/2014 05:54:00 10/11/2014 23:59:59 CLS Outpatient DAVE HOLDER MD [facility] PREOP BARRETTS SURVEILLANCE; SCREENING [id number] 12/15/2013 13:10:00 12/15/2013 23:59:59 CLS Outpatient ALPHONSO GOYAL [facility] ONC [id number] 08/22/2013 11:36:00 08/22/2013 23:59:59 CLS Outpatient DAVE HOLDER MD [facility] RAD COUGH,H/O HODGKINS LYMPHOMA [id number] 03/12/2018 09:30:00 PEN Preadmit DAVE HOLDER MD [facility] ENDO HX RODRIGUEZ'S ESOPHAGUS [id number] 03/10/2018 15:55:00 ACT Outpatient CHUY OWENS MD [facility] REHAB L INDEX FING STIFFNESS S/P PINNING PROX PHALANX FX [id number] 12/15/2016 08:49:00 Document Registration [id number] 12/15/2012 12:41:00 Document Registration [id number] 10/19/2012 08:01:00 Document Registration [id number] 10/14/2012 10:08:00 Document Registration [id number] 12/18/2011 07:49:00 Document Registration [id number] 12/15/2011 09:24:00 Document Registration [id number] 10/21/2011 07:50:00 Document Registration
[2018-03-12] MEDS ORDERED: D5 LR IV SOLUTION 1,000 ML IV STA ×2 (07:56→08:00)
[2018-03-12] MEDS ORDERED: MIDAZOLAM 2 MG/2 ML (VERSED) VIAL IVP PRN (08:00)
[2018-03-12] MEDS ORDERED: LIDOCAINE JELLY 2% (XYLOCAINE) 5 ML TUBE MM PRN ×2 (08:00)
[2018-03-12] MEDS ORDERED: HURRICAINE EXT TUBE (BENZOCAINE) XX PRN ×2 (08:00)
[2018-03-12] MEDS ORDERED: fentaNYL INJECTION 100 MCG/2 ML AMP IVP PRN (08:00)
[2018-03-12] MEDS ORDERED: D5 LR IV SOLUTION 1,000 ML IV ONE (08:01)
[2018-03-12 08:15] VITALS: BP 127/81
--- NOTE | 2018-03-12 08:32 | Pre-Op Note & Conscious Sedat ---
Pre-Operative Progress Note H&P Reviewed The H&P was reviewed, patient examined and no changes noted. Date H&P Reviewed: March 12, 2018 Time H&P Reviewed: 08:32 Conscious Sedation Pre-Proced ASA Class: 2 Airway Mallampati Classification: (shosh[place]pai[place] appropriate class) I. II. III, IV Lungs Heart ASA score ASA 1: a normal healthy patient ASA 2: a patient with a mild systemic disease (mid diabetes, controlled hypertension, obesity ASA 3: a patient with a severe systemic disease that limits activity (angina , COPD, prior Myocardial infarction) ASA 4: a patient with an incapacitating disease that is a constant threat to life (CHF, renal failure) ASA 5: a moribund patient not expected to survive 24 hrs. (ruptured aneurysm) ASA 6: a declared brain patient whose organs are being harvested. For emergent operations, add the letter E after the classification Grade 1 Sedation Plan: Analgesia, Amnesia, Plan communicated to team members, Discussed options with patient/fam, Discussed risks with patient/fam Note The patient is an appropriate candidate to undergo the planned procedure, sedation, and anesthesia. The patient immediately re-assessed prior to indication. DAVE HOLDER MD March 12, 2018 08:32
[2018-03-12] MEDS ORDERED: MIDAZOLAM 2 MG/2 ML (VERSED) VIAL ONE ×2 (08:52→09:10)
[2018-03-12] MEDS ORDERED: LIDOCAINE JELLY 2% (XYLOCAINE) 5 ML TUBE ONE (08:53)
[2018-03-12] MEDS ORDERED: fentaNYL INJECTION 100 MCG/2 ML AMP ONE (08:53)
[2018-03-12] MEDS ORDERED: HURRICAINE EXT TUBE (BENZOCAINE) ONE (08:53)
[2018-03-12] MEDS: fentaNYL INJECTION 100 MCG/2 ML AMP IVP PRN ×2 (09:00→09:13)
[2018-03-12] MEDS: MIDAZOLAM 2 MG/2 ML (VERSED) VIAL IVP PRN ×2 (09:05→09:17)
[2018-03-12 09:50] VITALS: BP 120/74
[2018-03-12 10:20] VITALS: BP 138/79
[2018-03-12 11:15] VITALS: BP 138/79
[2018-03-12 11:20] VITALS: BP 138/79
--- NOTE | 2018-03-12 19:12 | OPERATIVE REPORT ---
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 The patient was placed in left lateral decubitus position. The endoscope was inserted into the oral cavity and under direct visualization, the esophagus was intubated. The endoscope was passed down the esophagus, to the stomach and into the second portion of the duodenum. Careful inspection was made as the endoscope was withdrawn. The patient tolerated the procedure well. FINDINGS: The posterior pharynx, arytenoid aperture and true and false vocal folds were unremarkable. No evidence for erythema. Proximal and mid esophagus were unremarkable. Again, present beginning at 32 cm from the incisoral orifice was about an 8 cm segment of mucosa compatible with a salmon colored mucosa without evidence for ulceration, erosion nodularity or visual evidence for malignancy. Four-quadrant biopsies were taken from the proximal margin at 32 cm, another four at 36 cm and last for 39 to 40 cm from the incisoral orifice and submitted for histopathology. Again noted is evidence for a small hiatal hernia. The cardia, fundus and antrum of the stomach were unremarkable without evidence for inflammation, erosion or peptic ulcer disease. The pylorus, the pyloric channel, the duodenal bulb and second portion of duodenum were unremarkable. ASSESSMENT: There are no changes in this patient's long segment Valdovinos's on gross inspection. Again, the segment involves the distal 8 cm of esophageal mucosa. Four-quadrant biopsies were obtained from three levels as noted above. The patient tolerated the procedure well and was discharged with stable vital signs, voicing no complaints. As long as there is no evidence for high-grade dysplasia, we will be advocating repeat surveillance EGD in 1 to 2 years. Job ID: [id number] DocumentID: [id number] Dictated Date: 03/12/2018 11:54:31 [employer] Date: 03/12/2018 19:12:32 Dictated By: DAVE HOLDER MD [facility]
--- NOTE | 2018-03-16 11:14 | HISTORY AND PHYSICAL ---
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 He reports that he has been feeling well. Weight has been stable and he denies dysphagia, odynophagia, melena or bright red blood per rectum. He has had no problems with bowel habit change and also denies night sweats, chills or fever. Energy level has been normal and he believes that he has gained several pounds of weight over the winter time. PAST MEDICAL HISTORY: Significant for long segment Valdovinos esophagus in the past roughly involving distal 8 cm. He has no history of high-grade dysplasia and last underwent EGD in 12/2016. His oncologist has recommended yearly to no longer than 2 year scoping intervals. Over 40 years ago, he had first occurrence of Hodgkin lymphoma and underwent mantle radiation at that time. Secondary to this, he has developed hypothyroidism, is on thyroid replacement. He had recurrence of Hodgkin disease in 2006, which actually appeared to have begun in the transverse portion of the colon. His last colonoscopy was in 2013, and was unremarkable. He has been on omeprazole daily with no symptoms. PHYSICAL EXAMINATION: GENERAL: Reveals a well-appearing white male in no acute distress. VITAL SIGNS: His blood pressure was 112/60, weight is 171.6 pounds, is up seven pounds over the last six months. Heart rate 74 and regular. HEENT: Unremarkable. He is a Mallampati class 1 oropharyngeal configuration. No evidence of pharyngeal erythema or exudate is noted. NECK: Reveals no JVD, adenopathy or bruits. Ear canals are clear with normal TMs. CHEST: Clear. CARDIOVASCULAR: Reveals a regular rate and rhythm without murmur, S3 or S4. ABDOMEN: Soft, supple without mass, organomegaly or tenderness. Well-healed midline abdominal incision is noted. No bruits are noted. Normal bowel sounds are noted in four quadrants. EXTREMITIES: Reveal no cyanosis, clubbing or edema. ASSESSMENT AND PLAN: 1. The patient is set up for surveillance EGD on 03/12/2017, for surveillance of known long segment Valdovinos esophagus as noted above. Prep instructions were given. The patient is to abstain from aspirin, which he does not normally take and nonsteroidal medications in interim. 2. Hodgkin lymphoma with recurrence in remission, now a little over 10 years out from his last recurrence. 3. Not commented on above. In the interim, the patient had a traumatic fracture of the first metacarpal bone about 3 weeks ago that required pinning. He does have some swelling without pain and there is still significant limitation of the left index finger at the PIP joint and to a lesser extent the MCP joint. There is no significant warmth or erythema. He will be returning to Dr. Leiva to discuss further physical therapy to improve range of motion. Job ID: [id number] DocumentID: [id number] Dictated Date: 02/25/2018 08:16:22 General Practitioner Date: 02/25/2018 09:38:43 Dictated By: DAVE HOLDER MD <Dictated by DAVE HOLDER MD> <Electronically signed by DAVE HOLDER MD> 02/26/18 1156
== END 2018-03-12 11:20 | disposition home or self-care (01) ==
LOC: ENDO 07:47
PROVIDERS: ATTEND Internal Medicine
DX: K22.719 Barrett's esophagus with dysplasia, unspecified (principal); K44.9 Diaphragmatic hernia without obstruction or gangrene; C81.99 Hodgkin lymphoma, unspecified, extranodal and solid organ sites; E03.9 Hypothyroidism, unspecified; Z79.899 Other long term (current) drug therapy; Z92.3 Personal history of irradiation
CPT/HCPCS: 88305

== ENCOUNTER 2018-04-06 11:00 | Outpatient (RCR) | payer MEDICARE, OTHER | END 2018-05-18 | disposition home or self-care (01) | PROVIDERS: ATTEND Orthopaedic Surgery | DX: S62.611D Displaced fracture of proximal phalanx of left index finger, subsequent encounter for fracture with routine healing (principal) ==

== ENCOUNTER 2018-12-13 08:59 | Outpatient (RCR) | payer MEDICARE, OTHER ==
[2018-12-13 09:11] LABS: BASOPHILS # (AUTO) 0.1 10^3/uL (0.0-0.1); BASOPHILS % (AUTO) 2 % (0-10); EOSINOPHILS # (AUTO) 0.1 10^3/uL (0.0-0.3); EOSINOPHILS % (AUTO) 2 % (0-10); HEMATOCRIT 47 % (40-54); HEMOGLOBIN 15.3 G/DL (13.3-17.7); LYMPHOCYTES # (AUTO) 2.2 X 10^3 (1.0-4.0); LYMPHOCYTES % (AUTO) 36 % (12-44); MEAN CORPUSCULAR HEMOGLOBIN 30 PG (25-34); MEAN CORPUSCULAR HGB CONC 33 G/DL (32-36); MEAN CORPUSCULAR VOLUME 90 FL (80-99); MEAN PLATELET VOLUME 9.6 FL (7.4-10.4); MONOCYTES # (AUTO) 0.9 X 10^3 (0.0-1.0); MONOCYTES % (AUTO) 14 % (0-12); NEUTROPHILS # (AUTO) 2.9 X 10^3 (1.8-7.8); NEUTROPHILS % (AUTO) 46 % (42-75); PLATELET COUNT 335 10^3/uL (130-400); RED CELL DISTRIBUTION WIDTH 14.9 % (10.0-14.5); WHITE BLOOD COUNT 6.2 10^3/uL (4.3-11.0)
[2018-12-13 09:32] LABS: ALANINE AMINOTRANSFERASE 21 U/L (0-55); ALKALINE PHOSPHATASE 81 U/L (40-136); BILIRUBIN,TOTAL 0.4 MG/DL (0.1-1.0); BUN/CREATININE RATIO 13; CALCIUM 9.4 MG/DL (8.5-10.1); CARBON DIOXIDE 27 MMOL/L (21-32); CHLORIDE 103 MMOL/L (98-107); CREATININE SERUM 0.98 MG/DL (0.60-1.30); GFR ESTIMATED > 60; GLUCOSE 79 MG/DL (70-105); POTASSIUM 4.3 MMOL/L (3.6-5.0); SODIUM 140 MMOL/L (135-145); TOTAL PROTEIN 7.4 GM/DL (6.4-8.2)
== END 2019-03-13 | disposition home or self-care (01) ==
LOC: ONC 08:59
PROVIDERS: ATTEND Internal Medicine Hematology & Oncology
DX: Z08 Encounter for follow-up examination after completed treatment for malignant neoplasm (principal); Z85.72 Personal history of non-Hodgkin lymphomas; Z85.828 Personal history of other malignant neoplasm of skin; I10 Essential (primary) hypertension; E03.9 Hypothyroidism, unspecified; E78.5 Hyperlipidemia, unspecified; Z79.899 Other long term (current) drug therapy
CPT/HCPCS: 36415; 80053; 83615; 84443; 85025; 99213

== ENCOUNTER 2019-03-18 05:33 | Outpatient (CLI) | payer MEDICARE, OTHER ==
[~2019-03-18] VITALS: Ht 172.7 cm; Wt 76.2 kg
== END 2019-03-18 12:05 | disposition home or self-care (01) ==
LOC: PREOP 05:33
PROVIDERS: ATTEND Internal Medicine
DX: Z01.818 Encounter for other preprocedural examination (principal)

== ENCOUNTER 2019-03-25 06:44 | Day surgery (SDC) | payer MEDICARE, OTHER ==
--- NOTE | 2019-03-04 18:13 | HISTORY AND PHYSICAL ---
DATE OF SERVICE: PANENDOSCOPY HISTORY AND PHYSICAL HISTORY OF PRESENT ILLNESS: The patient is a 68-year-old white male with a history of a long segment Valdovinos's, reason for EGD and history of Hodgkin's disease involving the colon with a 5-year interval since his last colonoscopy. The patient reports that he has been feeling well. He has had no dysphagia, abdominal pain or bowel habit change. Weight has been stable. Energy level has been stable and he has had no night sweats, chills or fever. PHYSICAL EXAMINATION: GENERAL: Reveals a well-appearing white male. VITAL SIGNS: Weight is stable at 173.6 pounds, blood pressure 110/80. HEENT: Unremarkable. Sclerae nonicteric. Oral cavity reveals a Mallampati 2 oropharyngeal configuration. NECK: Revealed no JVD, adenopathy or bruits. CHEST: Clear to auscultation. CARDIOVASCULAR: Reveals a regular rate and rhythm without murmur, S3 or S4. ABDOMEN: Soft and supple. Well-healed surgical scars are noted. No mass or organomegaly is noted. Bowel sounds are positive. EXTREMITIES: Reveal no cyanosis, clubbing or edema. ASSESSMENT AND PLAN: The patient is set up for panendoscopy on 03/25/2019 due to history of long segment Valdovinos's and Hodgkin's disease of the colon. Prep instructions with the Suprep kit were given as he had some nausea last time. We will have him take Zofran Melt tab 4 mg half an hour before each of the split doses. Prep instructions were given and questions were answered. Job ID: [id number] DocumentID: [id number] Dictated Date: 02/24/2019 16:41:21 Floodplain Manager Date: 02/24/2019 17:10:33 Dictated By: DAVE HOLDER MD [facility]
[~2019-03-25] VITALS: Ht 172.7 cm; Wt 76.2 kg
--- OUTSIDE RECORDS SUMMARY | 2019-03-25 06:49 | XMS REPORT | Continuity of Care Document ---
Author Organization Unknown Address Unknown Allergies Active Description Code Type Severity Reaction Onset Reported/Identified Relationship to Patient Clinical Status Yes NKANo Known Allergies NKA Miscellaneous Allergy Unknown N/A 06/30/2006 Yes No Known Drug Allergies [id number] Drug Allergy Unknown N/A 03/08/2018 Medications There [...] 01/04/2015 ALPHONSO GOYAL N Ot 288.63 01/04/2015 GENEVA GOYALAN N Ot 465.9 01/04/2015 ALPHONSO GOYAL N Ot 530.85 01/04/2015 JYOTSNA, BOBAN N Ot V15.3 01/04/2015 JYOTSNA BOBAN N Ot V58.69 01/04/2015 JYOTSNA, BOBAN [...] DYSPLASIA 12/15/2016 ALPHONSO GOYAL Ot Z79.899 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) DRUG THERAPY 12/15/2016 Ot 530.85 RODRIGUEZ'S [...] N Ot 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 12/15/2016 JYOTSNA BOBAN N Ot V15.3 HX OF IRRADIATION 12/15/2016 JYOTSNA BOBAN N Ot V58.66 LONG-TERM (CURRENT) USE OF ASPIRIN 12/15/2016 JYOTSNA BOBAN N Ot V58.69 OTH MED,LT,CURRENT USE 12/15/2016 JYOTSNA, BOBAN N Ot V87.41 PERSONAL HISTORY OF ANTINEOPLASTIC CHEMO 12/15/2016 DAVE HOLDER MD Ot V72.84 EXAM PRE-OPERATIVE NOS 12/15/2016 JYOTSNA, BOBAN N Ot 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 12/15/2016 JYOTSNA BOBAN N Ot 288.63 MONOCYTOSIS (SYMPTOMATIC) 12/15/2016 JYOTSNA BOBAN N Ot 465.9 ACUTE URI NOS 12/15/2016 JYOTSNA BOBAN N Ot 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 12/15/2016 JYOTSNA BOBAN N Ot V15.3 HX OF IRRADIATION 12/15/2016 JYOTSNA ALPHONSO N Ot V58.69 OTH MED,LT,CURRENT USE 12/15/2016 JYOTSNA GENEVAAN N Ot V87.41 PERSONAL HISTORY OF ANTINEOPLASTIC CHEMO 12/15/2016 DAVE HOLDER MD Ot 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 12/15/2016 DAVE HOLDER MD Ot V72.84 EXAM PRE-OPERATIVE NOS 12/24/2016 DAVE HOLDER MD Ot 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 12/29/2016 JYOTSNA BOBAN N Ot 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, UNSP, EXTRANODAL AND S 12/29/2016 JYOTSNA, BOBAN N Ot E03.9 HYPOTHYROIDISM, UNSPECIFIED 12/29/2016 JYOTSNA, BOBAN N Ot E78.5 HYPERLIPIDEMIA, UNSPECIFIED 12/29/2016 JYOTSNA, BOBAN N Ot I10 ESSENTIAL (PRIMARY) HYPERTENSION 12/29/2016 ALPHONSO GOYAL Ot 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 12/29/2016 ALPHONSO GOYAL Ot Z79.899 OTHER INTERMEDIATE (CURRENT) DRUG THERAPY 12/31/2016 DAVE HOLDER MD Ot 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 12/31/2016 DAVE HOLDER MD, Ot 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 01/06/2017 ALPHONSO GOYAL Ot 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, UNSP, EXTRANODAL AND S 01/06/2017 ALPHONSO GOYAL Ot E03.9 HYPOTHYROIDISM, UNSPECIFIED 01/06/2017 JYOTSNAALPHONSO REID Ot E78.5 HYPERLIPIDEMIA, UNSPECIFIED 01/06/2017 ALPHONSO GOYAL Ot I10 ESSENTIAL (PRIMARY) HYPERTENSION 01/06/2017 ALPHONSO GOYAL Ot 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 01/06/2017 ALPHONSO GOYAL Ot Z79.899 OTHER INTERMEDIATE (CURRENT) DRUG THERAPY 01/12/2017 DAVE HOLDER MD Ot 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 01/21/2017 DAVE HOLDER MD, Ot 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 03/02/2017 DAVE HOLDER MD Ot R55 SYNCOPE AND COLLAPSE 04/07/2017 DAVE HOLDER MD, Ot R55 SYNCOPE AND COLLAPSE 12/15/2017 OMER SMALL DO Ot E03.9 HYPOTHYROIDISM, UNSPECIFIED 12/15/2017 TAZ SMALL DOA Jono Ot I10 ESSENTIAL (PRIMARY) HYPERTENSION 12/15/2017 OMER [...] Z92.21 PERSONAL HISTORY OF ANTINEOPLASTIC CHEMO 12/15/2017 ALPHONSO GOYAL Ot 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, UNSP, EXTRANODAL AND S 12/15/2017 JYOTSNA GENEVAJORY Charmaine Ot E03.9 HYPOTHYROIDISM, UNSPECIFIED 12/15/2017 JYOTSNA, ALPHONSO Montano Ot E78.5 HYPERLIPIDEMIA, UNSPECIFIED 12/15/2017 JYOTSNA, ALPHONSO N Ot I10 ESSENTIAL (PRIMARY) HYPERTENSION 12/15/2017 ALPHONSO GOYAL Ot Z79.899 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) DRUG THERAPY 12/15/2017 CHUY OWENS MD Ot S62.611A DISP FX OF PROXIMAL PHALANX OF LEFT INDE 12/15/2017 CHUY OWENS MD Ot X58.XXXA EXPOSURE TO OTHER SPECIFIED FACTORS, INI 12/15/2017 CHUY OWENS MD, Ot Z01.818 ENCOUNTER FOR OTHER PREPROCEDURAL EXAMIN 12/15/2017 GALLO OLIVA, DAVE Lemus Ot 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 12/15/2017 DAVE HOLDER MD Ot R55 SYNCOPE AND COLLAPSE 12/15/2017 ALPHONSO GOYAL Ot 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, UNSP, EXTRANODAL AND S 12/15/2017 JYOTSNAALPHONSO Ot E03.9 HYPOTHYROIDISM, UNSPECIFIED 12/15/2017 JYOTSNAALPHONSO Ot E78.5 HYPERLIPIDEMIA, UNSPECIFIED 12/15/2017 ALPHONSO GOYAL Ot I10 ESSENTIAL (PRIMARY) HYPERTENSION 12/15/2017 ALPHONSO GOYAL Ot Z79.899 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) DRUG THERAPY 12/16/2017 CHUY OWENS MD Ot E03.9 HYPOTHYROIDISM, UNSPECIFIED 12/16/2017 CHUY OWENS MD Ot K21.9 GASTRO-ESOPHAGEAL REFLUX DISEASE WITHOUT 12/16/2017 CHUY OWENS MD, Ot S62.611A DISP FX OF PROXIMAL PHALANX OF LEFT INDE 12/16/2017 CHUY OWENS MD Ot W23.0XXA CAUGHT, CRUSH, JAMMED, OR PINCHED BETW M 12/16/2017 CHUY OWENS MD Ot Z11.2 ENCOUNTER FOR SCREENING FOR OTHER BACTER 12/16/2017 CHUY OWENS MD Ot Z79.899 OTHER INTERMEDIATE (CURRENT) DRUG THERAPY 12/16/2017 ZACHUY WILLS MD, Ot Z85.71 PERSONAL HISTORY OF HODGKIN LYMPHOMA 12/16/2017 CHUY OWENS MD Ot Z92.21 PERSONAL HISTORY [...] PAIN IN LEFT HAND 12/17/2017 OMER SMALL DO Ot S62.611A DISP FX [...] SCREENING FOR OTHER BACTER 12/21/2017 CHUY OWENS MD Ot Z79.899 OTHER INTERMEDIATE (CURRENT) DRUG THERAPY 12/21/2017 CHUY OWENS MD, Ot Z85.71 PERSONAL HISTORY [...] HYPERTENSION 01/07/2018 ALPHONSO GOYAL Ot Z79.899 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) DRUG THERAPY 01/18/2018 CHUY DALAL MD [...] 01/28/2018 CHUY DALAL MD Ot Z79.899 OTHER INTERMEDIATE (CURRENT) DRUG THERAPY 02/04/2018 CHUY DALAL MD Ot C44.310 BASAL CELL CARCINOMA OF SKIN OF UNSPECIF 02/04/2018 CHUY DALAL MD Ot E03.9 HYPOTHYROIDISM, UNSPECIFIED 02/04/2018 CHUY DALAL MD Ot K21.9 GASTRO-ESOPHAGEAL REFLUX DISEASE WITHOUT 02/04/2018 CHUY DALAL MD Ot Z79.899 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) DRUG THERAPY 02/09/2018 CHUY DALAL MD Ot C44.310 BASAL CELL CARCINOMA OF SKIN OF UNSPECIF 02/09/2018 CHUY DALAL MD Ot E03.9 HYPOTHYROIDISM, UNSPECIFIED 02/09/2018 CHUY DALAL MD Ot K21.9 GASTRO-ESOPHAGEAL REFLUX DISEASE WITHOUT 02/09/2018 CHUY DALAL MD Ot Z79.899 OTHER INTERMEDIATE (CURRENT) DRUG THERAPY 02/17/2018 Ot V72.84 EXAM [...] Ot V15.3 HX OF IRRADIATION 02/17/2018 JYOTSNA BOBJORY N Ot V58.66 LONG-TERM (CURRENT) USE OF ASPIRIN 02/17/2018 ALPHONSO GOYAL N Ot V58.69 OTH MED,LT,CURRENT USE 02/17/2018 ALPHONSO GOYAL N Ot V87.41 PERSONAL HISTORY OF ANTINEOPLASTIC CHEMO 02/17/2018 DAVE HOLDER MD Ot V72.84 EXAM PRE-OPERATIVE NOS 02/17/2018 JYOTSNA, BOBAN N Ot 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 02/17/2018 JYOTSNA, BOBAN N Ot 288.63 MONOCYTOSIS (SYMPTOMATIC) 02/17/2018 JYOTSNA, BOBAN N Ot 465.9 ACUTE URI NOS 02/17/2018 JYOTSNA, BOBAN N Ot 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 02/17/2018 GENEVA GOYALAN N Ot V15.3 HX OF IRRADIATION 02/17/2018 JYOTSNA BOBAN N Ot V58.69 OTH MED,LT,CURRENT USE 02/17/2018 JYOTSNA BOBAN N Ot V87.41 PERSONAL HISTORY OF ANTINEOPLASTIC CHEMO 02/17/2018 GALLO OLIVA, DAVE Lemus Ot 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 02/17/2018 GALLO OLIVA, DAVE Lemus Ot V72.84 EXAM PRE-OPERATIVE NOS 02/17/2018 JYOTSNA BOBAN N Ot 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, UNSP, EXTRANODAL AND S 02/17/2018 JYOTSNA BOBAN N Ot E03.9 HYPOTHYROIDISM, UNSPECIFIED 02/17/2018 JYOTSNA, BOBAN N Ot E78.5 HYPERLIPIDEMIA, UNSPECIFIED 02/17/2018 JYOTSNA, BOBAN N Ot I10 ESSENTIAL (PRIMARY) HYPERTENSION 02/17/2018 JYOTSNA BOBAN N Ot 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 02/17/2018 JYOTSNA BOBAN N Ot Z79.899 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) DRUG THERAPY 02/17/2018 DAVE HOLDER MD Ot 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 02/17/2018 DAVE HOLDER MD Ot 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 02/17/2018 DAVE HOLDER MD Ot Z01.818 ENCOUNTER FOR OTHER PREPROCEDURAL EXAMIN 02/17/2018 DAVE HOLDER MD Ot R55 SYNCOPE AND COLLAPSE 02/17/2018 JYOTSNA BOBAN N Ot 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, UNSP, EXTRANODAL AND S 02/17/2018 JYOTSNA BOBAN N Ot E03.9 HYPOTHYROIDISM, UNSPECIFIED 02/17/2018 JYOTSNA, BOBAN N Ot E78.5 HYPERLIPIDEMIA, UNSPECIFIED 02/17/2018 JYOTSNA, BOBAN N Ot I10 ESSENTIAL (PRIMARY) HYPERTENSION 02/17/2018 JYOTSNA, GENEVAJORY N Ot Z79.899 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) DRUG THERAPY 02/17/2018 Ot V72.84 EXAM [...] DAVE HOLDER MD Ot 786.2 COUGH 02/17/2018 JYOTSNA, BOBAN N Ot 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 02/17/2018 GENEVA GOYALAN N Ot 272.0 PURE HYPERCHOLESTEROLEM 02/17/2018 JYOTSNA BOBAN N Ot 465.9 ACUTE URI NOS 02/17/2018 JYOTSNA, BOBAN N Ot 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 02/17/2018 JYOTSNA BOBAN N Ot V15.3 HX OF IRRADIATION 02/17/2018 JYOTSNA BOBAN N Ot V58.66 LONG-TERM (CURRENT) USE OF ASPIRIN 02/17/2018 JYOTSNA, BOBAN N Ot V58.69 OTH MED,LT,CURRENT USE [...] BOBAN N Ot 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 02/17/2018 JYOTSNA, BOBAN N Ot V15.3 HX OF IRRADIATION 02/17/2018 JYOTSNA BOBAN N Ot V58.69 OTH MED,LT,CURRENT USE 02/17/2018 ALPHONSO GOYAL N Ot V87.41 PERSONAL HISTORY OF ANTINEOPLASTIC CHEMO 02/17/2018 DAVE HOLDER MD Ot 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 02/17/2018 DAVE HOLDER MD, Ot V72.84 EXAM PRE-OPERATIVE NOS 02/17/2018 ALPHONSO GOYAL N Ot 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, UNSP, EXTRANODAL AND S 02/17/2018 GENEVA GOYALAN N Ot E03.9 HYPOTHYROIDISM, UNSPECIFIED 02/17/2018 JYOTSNA, BOBAN N Ot E78.5 HYPERLIPIDEMIA, UNSPECIFIED 02/17/2018 JYOTSNA, BOBAN N Ot I10 ESSENTIAL (PRIMARY) HYPERTENSION 02/17/2018 JYOTSNA, BOBAN N Ot 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 02/17/2018 JYOTSNA, BOBAN N Ot Z79.899 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) DRUG THERAPY 02/17/2018 DAVE HOLDER MD Ot 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 02/17/2018 DAVE HOLDER MD, Ot 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 02/17/2018 DAVE HOLDER MD Ot Z01.818 ENCOUNTER FOR OTHER PREPROCEDURAL EXAMIN 02/17/2018 DAVE HOLDER MD, Ot R55 SYNCOPE AND COLLAPSE 02/17/2018 ALPHONSO GOYAL N Ot 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, UNSP, EXTRANODAL AND S 02/17/2018 JYOTSNA BOBAN N Ot E03.9 HYPOTHYROIDISM, UNSPECIFIED 02/17/2018 JYOTSNA BOBAN N Ot E78.5 HYPERLIPIDEMIA, UNSPECIFIED 02/17/2018 JYOTSNA BOBAN N Ot I10 ESSENTIAL (PRIMARY) HYPERTENSION 02/17/2018 JYOTSNA BOBAN N Ot Z79.899 OTHER INTERMEDIATE (CURRENT) DRUG THERAPY 03/05/2018 DAVE HOLDER MD Ot 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 03/05/2018 DAVE HOLDER MD Ot Z01.818 ENCOUNTER FOR OTHER PREPROCEDURAL EXAMIN 03/08/2018 DAVE HOLDER MD Ot R55 SYNCOPE AND COLLAPSE 03/08/2018 DAVE HOLDER MD Ot 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 03/08/2018 DAVE HOLDER MD Ot Z01.818 ENCOUNTER FOR OTHER PREPROCEDURAL EXAMIN 03/08/2018 GRACIELA OLIVA, CHUY Caraballo Ot S62.611D DISP FX OF PROX PHALANX OF L IDX FNGR, 7 03/08/2018 CHUY OWENS MD Ot S62.611D DISP FX OF PROX PHALANX OF L IDX FNGR, 7 03/08/2018 DAVE HOLDER MD, Ot 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 03/08/2018 DAVE HOLDER MD, Ot Z01.818 ENCOUNTER FOR OTHER PREPROCEDURAL EXAMIN 03/08/2018 DAVE HOLDER MD, Ot 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 03/08/2018 DAVE HOLDER MD, Ot Z01.818 ENCOUNTER FOR OTHER PREPROCEDURAL EXAMIN 03/12/2018 DAVE HOLDER MD, Ot 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 03/12/2018 DAVE HOLDER MD Ot R55 SYNCOPE AND COLLAPSE 03/12/2018 ALPHONSO GOYAL Ot 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, UNSP, EXTRANODAL AND S 03/12/2018 ALPHONSO GOYAL Ot E03.9 HYPOTHYROIDISM, UNSPECIFIED 03/12/2018 ALPHONSO GOYAL Ot E78.5 HYPERLIPIDEMIA, UNSPECIFIED 03/12/2018 ALPHONSO GOYAL Ot I10 ESSENTIAL (PRIMARY) HYPERTENSION 03/12/2018 ALPHONSO GOYAL Ot Z79.899 OTHER INTERMEDIATE (CURRENT) DRUG THERAPY 03/12/2018 DAVE HOLDER MD, Ot 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, UNSP, EXTRANODAL AND S 03/12/2018 DAVE HOLDER MD Ot E03.9 HYPOTHYROIDISM, UNSPECIFIED 03/12/2018 DAVE HOLDER MD Ot K22.719 RODRIGUEZ'S ESOPHAGUS WITH DYSPLASIA, UNSP 03/12/2018 DAVE HOLDER MD Ot K44.9 DIAPHRAGMATIC HERNIA WITHOUT OBSTRUCTION 03/12/2018 DAVE HOLDER MD Ot Z79.899 OTHER INTERMEDIATE (CURRENT) DRUG THERAPY 03/12/2018 DAVE HOLDER MD Ot Z92.3 PERSONAL HISTORY OF IRRADIATION 03/16/2018 DAVE HOLDER MD, Ot 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, UNSP, EXTRANODAL AND S 03/16/2018 HOLDER MD, DAVE D Ot E03.9 HYPOTHYROIDISM, UNSPECIFIED 03/16/2018 GALLO OLIVA, DAVE Lemus Ot K22.719 RODRIGUEZ'S ESOPHAGUS WITH DYSPLASIA, UNSP 03/16/2018 GALLO OLIVA, DAVE Lemus Ot K44.9 DIAPHRAGMATIC HERNIA WITHOUT OBSTRUCTION 03/16/2018 GALLO OLIVA, DAVE Lemus Ot Z79.899 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) DRUG THERAPY 03/16/2018 GALLO OLIVA, DAVE Lemus Ot Z92.3 PERSONAL HISTORY OF IRRADIATION 03/30/2018 GRACIELA OLIVA, CHUY Caraballo Ot S62.611D DISP FX OF PROX PHALANX OF L IDX FNGR, 7 05/18/2018 GRACIELA OLIVA, CHUY Caraballo Ot S62.611D DISP FX OF PROX PHALANX OF L IDX FNGR, 7 05/19/2018 CHUY OWENS MD Ot S62.611D DISP FX OF PROX PHALANX OF L IDX FNGR, 7 12/13/2018 DAVE HOLDER MD Ot 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 12/13/2018 DAVE HOLDER MD Ot 786.2 COUGH 12/13/2018 GENEVA GOYALAN N Ot 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 12/13/2018 JYOTSNA BOBAN N Ot 272.0 PURE HYPERCHOLESTEROLEM 12/13/2018 JYOTSNA BOBAN N Ot 465.9 ACUTE URI NOS 12/13/2018 JYOTSNA BOBAN N Ot 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 12/13/2018 ALPHONSO GOYAL N Ot V15.3 HX OF IRRADIATION 12/13/2018 ALPHONSO GOYAL N Ot V58.66 LONG-TERM (CURRENT) USE OF ASPIRIN 12/13/2018 JYOTSNA BOBAN N Ot V58.69 OT MED,LT,CURRENT USE 12/13/2018 GENEVA GOYALAN N Ot V87.41 PERSONAL HISTORY OF ANTINEOPLASTIC CHEMO 12/13/2018 DAVE HOLDER MD Ot V72.84 EXAM PRE-OPERATIVE NOS 12/13/2018 JYOTSNA BOBAN N Ot 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 12/13/2018 JYOTSNA BOBAN N Ot 288.63 MONOCYTOSIS (SYMPTOMATIC) 12/13/2018 JYOTSNA BOBAN N Ot 465.9 ACUTE URI NOS 12/13/2018 JYOTSNA, BOBAN N Ot 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 12/13/2018 JYOTSNA GENEVAAN N Ot V15.3 HX OF IRRADIATION 12/13/2018 JYOTSNA BOBAN N Ot V58.69 OTH MED,LT,CURRENT USE 12/13/2018 JYOTSNA BOBAN N Ot V87.41 PERSONAL HISTORY OF ANTINEOPLASTIC CHEMO 12/13/2018 GALLO OLIVA, DAVE Lemus Ot 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 12/13/2018 DAVE HOLDER MD, Ot V72.84 EXAM PRE-OPERATIVE NOS 12/13/2018 JYOTSNA, BOBAN N Ot 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, UNSP, EXTRANODAL AND S 12/13/2018 JYOTSNA, BOBAN N Ot E03.9 HYPOTHYROIDISM, UNSPECIFIED 12/13/2018 JYOTSNA, BOBAN N Ot E78.5 HYPERLIPIDEMIA, UNSPECIFIED 12/13/2018 JYOTSNA, BOBAN N Ot I10 ESSENTIAL (PRIMARY) HYPERTENSION 12/13/2018 GENEVA GOYALAN N Ot 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 12/13/2018 JYOTSNA BOBAN N Ot Z79.899 OTHER INTERMEDIATE (CURRENT) DRUG THERAPY 12/13/2018 DAVE HOLDER MD Ot 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 12/13/2018 DAVE HOLDER MD, Ot 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 12/13/2018 DAVE HOLDER MD Ot Z01.818 ENCOUNTER FOR OTHER PREPROCEDURAL EXAMIN 12/13/2018 DAVE HOLDER MD Ot R55 SYNCOPE AND COLLAPSE 12/13/2018 ALPHONSO GOYAL N Ot 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, UNSP, EXTRANODAL AND S 12/13/2018 JYOTSNA, BOBAN N Ot E03.9 HYPOTHYROIDISM, UNSPECIFIED 12/13/2018 JYOTSNA, BOBAN N Ot E78.5 HYPERLIPIDEMIA, UNSPECIFIED 12/13/2018 JYOTSNA, BOBAN N Ot I10 ESSENTIAL (PRIMARY) HYPERTENSION 12/13/2018 JYOTSNA, BOBAN N Ot Z79.899 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) DRUG THERAPY 01/28/2019 JYOTSNA, BOBAN N Ot E03.9 HYPOTHYROIDISM, UNSPECIFIED 01/28/2019 JYOTSNA, BOBAN N Ot E78.5 HYPERLIPIDEMIA, UNSPECIFIED 01/28/2019 JYOTSNA, BOBAN N Ot I10 ESSENTIAL (PRIMARY) HYPERTENSION 01/28/2019 JYOTSNAALPHONSO N Ot Z08 ENCNTR FOR FOLLOW-UP EXAM AFTER TRTMT FO 01/28/2019 ALPHONSO GOYAL N Ot Z79.899 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) DRUG THERAPY 01/28/2019 JYOTSNAALPHONSO N Ot Z85.72 PERSONAL HISTORY OF NON-HODGKIN LYMPHOMA 01/28/2019 JYOTSNAALPHONSO REID N Ot Z85.828 PERSONAL HISTORY OF OTHER MALIGNANT NEOP 03/13/2019 JYOTSNAALPHONSO N Ot E03.9 HYPOTHYROIDISM, UNSPECIFIED 03/13/2019 JYOTSNAALPHONSO N Ot E78.5 HYPERLIPIDEMIA, UNSPECIFIED 03/13/2019 JYOTSNAALPHONSO N Ot I10 ESSENTIAL (PRIMARY) HYPERTENSION 03/13/2019 ALPHONSO GOYAL N Ot Z08 ENCNTR FOR FOLLOW-UP EXAM AFTER TRTMT FO 03/13/2019 JYOTSNAALPHONSO REID N Ot Z79.899 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) DRUG THERAPY 03/13/2019 ALPHONSO GOYAL N Ot Z85.72 PERSONAL HISTORY OF NON-HODGKIN LYMPHOMA 03/13/2019 JYOTSNAALPHONSO REID N Ot Z85.828 PERSONAL HISTORY OF OTHER MALIGNANT NEOP 03/14/2019 JYOTSNAALPHONSO REID N Ot E03.9 HYPOTHYROIDISM, UNSPECIFIED 03/14/2019 JYOTSNAALPHONSO REID N Ot E78.5 HYPERLIPIDEMIA, UNSPECIFIED 03/14/2019 JYOTSNA BOBJORY N Ot I10 ESSENTIAL (PRIMARY) HYPERTENSION 03/14/2019 ALPHONSO GOYAL N Ot Z08 ENCNTR FOR FOLLOW-UP EXAM AFTER TRTMT FO 03/14/2019 ALPHONSO GOYAL N Ot Z79.899 OTHER INTERMEDIATE (CURRENT) DRUG THERAPY 03/14/2019 JYOTSNAALPHONSO REID N Ot Z85.72 PERSONAL HISTORY OF NON-HODGKIN LYMPHOMA 03/14/2019 ALPHONSO GOYAL N Ot Z85.828 PERSONAL HISTORY OF OTHER MALIGNANT NEOP 03/18/2019 GALLO OLIVA, DAVE Lemus Ot Z01.818 ENCOUNTER FOR OTHER PREPROCEDURAL EXAMIN 03/23/2019 ALPHONSO GOYAL N Ot 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 03/23/2019 ALPHONSO GOYAL N Ot 272.0 PURE HYPERCHOLESTEROLEM 03/23/2019 JYOTSNA, BOBAN N Ot 465.9 ACUTE URI NOS 03/23/2019 JYOTSNA BOBAN N Ot 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 03/23/2019 JYOTSNA BOBAN N Ot V15.3 HX OF IRRADIATION 03/23/2019 JYOTSNA, BOBAN N Ot V58.66 LONG-TERM (CURRENT) USE OF ASPIRIN 03/23/2019 JYOTSNA, BOBAN N Ot V58.69 OTH MED,LT,CURRENT USE 03/23/2019 JYOTSNA, BOBAN N Ot V87.41 PERSONAL HISTORY OF ANTINEOPLASTIC CHEMO 03/23/2019 DAVE HOLDER MD Ot V72.84 EXAM PRE-OPERATIVE NOS 03/23/2019 JYOTSNA, BOBAN N Ot 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 03/23/2019 JYOTSNA, BOBAN N Ot 288.63 MONOCYTOSIS (SYMPTOMATIC) 03/23/2019 JYOTSNA BOBAN N Ot 465.9 ACUTE URI NOS 03/23/2019 JYOTSNA BOBAN N Ot 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 03/23/2019 JYOTSNA BOBAN N Ot V15.3 HX OF IRRADIATION 03/23/2019 JYOTSNA BOBAN N Ot V58.69 OTH MED,LT,CURRENT USE 03/23/2019 JYOTSNA, BOBAN N Ot V87.41 PERSONAL HISTORY OF ANTINEOPLASTIC CHEMO 03/23/2019 DAVE HOLDER MD Ot 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 03/23/2019 DAVE HOLDER MD Ot V72.84 EXAM PRE-OPERATIVE NOS 03/23/2019 JYOTSNA BOBAN N Ot 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, UNSP, EXTRANODAL AND S 03/23/2019 JYOTSNA, BOBAN N Ot E03.9 HYPOTHYROIDISM, UNSPECIFIED 03/23/2019 JYOTSNA, BOBAN N Ot E78.5 HYPERLIPIDEMIA, UNSPECIFIED 03/23/2019 JYOTSNA, BOBAN N Ot I10 ESSENTIAL (PRIMARY) HYPERTENSION 03/23/2019 JYOTSNA, BOBAN N Ot 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 03/23/2019 JYOTSNA, BOBAN N Ot Z79.899 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) DRUG THERAPY 03/23/2019 DAVE HOLDER MD, Ot 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 03/23/2019 DAVE HOLDER MD, Ot 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 03/23/2019 DAVE HOLDER MD Ot Z01.818 ENCOUNTER FOR OTHER PREPROCEDURAL EXAMIN 03/23/2019 DAVE HOLDER MD Ot R55 SYNCOPE AND COLLAPSE 03/23/2019 ALPHONSO GOYAL Charmaine Ot 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, UNSP, EXTRANODAL AND S 03/23/2019 ALPHONSO GOYAL N Ot E03.9 HYPOTHYROIDISM, UNSPECIFIED 03/23/2019 ALPHONSO GOYAL N Ot E78.5 HYPERLIPIDEMIA, UNSPECIFIED 03/23/2019 JYOTNSA BOBJORY N Ot I10 ESSENTIAL (PRIMARY) HYPERTENSION 03/23/2019 ALPHONSO GOYAL N Ot Z79.899 OTHER INTERMEDIATE (CURRENT) DRUG THERAPY 03/23/2019 ALPHONSO GOYAL N Ot E03.9 HYPOTHYROIDISM, UNSPECIFIED 03/23/2019 ALPHONSO GOYAL N Ot E78.5 HYPERLIPIDEMIA, UNSPECIFIED 03/23/2019 JYOTSNA BOBJORY N Ot I10 ESSENTIAL (PRIMARY) HYPERTENSION 03/23/2019 ALPHONSO GOYAL N Ot Z08 ENCNTR FOR FOLLOW-UP EXAM AFTER TRTMT FO 03/23/2019 ALPHONSO GOYAL N Ot Z79.899 OTHER INTERMEDIATE (CURRENT) DRUG THERAPY 03/23/2019 ALPHONSO GOYAL N Ot Z85.72 PERSONAL HISTORY OF NON-HODGKIN LYMPHOMA 03/23/2019 ALPHONSO GOYAL N Ot Z85.828 PERSONAL HISTORY OF OTHER MALIGNANT NEOP Procedures There is no data. Results Test Result Range Methicillin resistant Staphylococcus aureus (MRSA) screening culture - 08:15 Methicillin resistant Staphylococcus aureus (MRSA) screening culture NEG NRG Methicillin resistant Staphylococcus aureus (MRSA) screening culture - 09:35 Methicillin resistant Staphylococcus aureus (MRSA) screening culture NEG NRG Encounters ACCT No. Visit Date/Time Discharge Status Pt. Type Provider Facility Loc./Unit Complaint [id number] 03/18/2019 05:33:00 03/18/2019 12:05:00 DIS Outpatient DAVE HOLDER MD [facility] PREOP COLONOSCOPY/EGD [id number] 03/14/2019 00:10:00 03/14/2019 23:59:59 CLS Preadmit ALPHONSO GOYAL [facility] ONC [id number] 12/13/2018 08:59:00 03/13/2019 00:01:00 DIS Outpatient ALPHONSO GOYAL [facility] ONC [id number] 05/19/2018 00:11:00 05/19/2018 23:59:59 CLS Preadmit CHUY OWENS MD [facility] REHAB L INDEX FING STIFFNESS S/P PINNING PROX PHALANX FX [id number] 04/06/2018 11:00:00 05/18/2018 00:01:00 DIS Outpatient CHUY OWENS MD [facility] REHAB L INDEX FING STIFFNESS S/P PINNING PROX PHALANX FX [id number] 03/12/2018 07:47:00 03/12/2018 11:20:00 DIS Outpatient DAVE HOLDER MD [facility] ENDO HX RODRIGUEZ'S ESOPHAGUS [id number] 03/08/2018 10:45:00 03/08/2018 11:44:00 DIS Outpatient DAVE HOLDER MD [facility] PREOP EGD [id number] 01/28/2018 08:35:00 01/28/2018 14:05:00 DIS Outpatient CHUY DALAL MD [facility] LEFT CHEEK LESION, BASAL CELL CARCINOMA [id number] 01/18/2018 09:08:00 01/18/2018 23:59:59 CLS Outpatient CHUY DALAL MD [facility] PREOP LEFT CHEEK LESION, BASAL CELL CARCINOMA [id number] 12/16/2017 07:50:00 12/16/2017 13:35:00 DIS Outpatient CHUY OWENS MD [facility] LEFT HAND INDEX FINGER FRACTURE [id number] 12/15/2017 15:03:00 12/15/2017 16:02:00 DIS Outpatient CHUY OWENS MD [facility] PREOP LEFT INDEX FINGER PROX.PLALANX C.R., PERC PINNING, [id number] 12/15/2017 12:38:00 12/15/2017 13:32:00 DIS Emergency OMER SMALL DO [facility] ER LEFT HAND CAUGHT IN WENC [id number] 12/14/2017 08:56:00 12/14/2017 23:59:59 CLS Outpatient ALPHONSO GOYAL N [facility] ONC [id number] 04/08/2017 08:00:00 04/08/2017 23:59:59 CLS Preadmit DAVE HOLDER MD [facility] CARD PRESYNAPSE [id number] 02/02/2017 08:27:00 04/07/2017 00:01:00 DIS Outpatient DAVE HOLDER MD [facility] CARD PRESYNAPSE [id number] 12/19/2016 09:39:00 12/19/2016 23:59:59 CLS Outpatient DAVE HOLDER MD [facility] ENDO BARRETS ESOPHAGUS [id number] 12/18/2016 05:38:00 12/18/2016 23:59:59 CLS Outpatient DAVE HOLDER MD [facility] PREOP BARRETS ESOPHAGUS [id number] 12/15/2016 08:49:00 12/15/2016 23:59:59 CLS Outpatient ALPHONSO GOYAL [facility] ONC [id number] 12/20/2015 12:55:00 12/15/2016 08:46:00 DIS Outpatient ALPHONSO GOYAL [facility] ONC [id number] 07/20/2015 06:56:00 07/20/2015 09:50:00 DIS Outpatient DAVE HOLDER MD [facility] RODRIGUEZ'S ESOPHOGUS [id number] 07/18/2015 05:42:00 07/18/2015 23:59:59 CLS Outpatient DAVE HOLDER MD [facility] PREOP RODRIGUEZ'S ESOPHOGUS [id number] 12/21/2014 12:37:00 12/21/2014 23:59:59 CLS Outpatient ALPHONSO GOYAL [facility] ONC [id number] 10/13/2014 07:03:00 10/13/2014 11:00:00 DIS Outpatient DAVE HOLDER MD [facility] BARRETTS SURVEILLANCE; SCREENING [id number] 10/11/2014 05:54:00 10/11/2014 23:59:59 CLS Outpatient DAVE HOLDER MD [facility] PREOP BARRETTS SURVEILLANCE; SCREENING [id number] 12/15/2013 13:10:00 12/15/2013 23:59:59 CLS Outpatient ALPHONSO GOYAL Charmaine [facility] ONC [id number] 08/22/2013 11:36:00 08/22/2013 23:59:59 CLS Outpatient DAVE HOLDER MD [facility] RAD COUGH,H/O HODGKINS LYMPHOMA [id number] 03/25/2019 08:00:00 PEN Preadmit DAVE HOLDER MD [facility] ENDO ESTEPHANIA'S ESOPHAGUS/HODGKINS OF THE COLON [id number] 12/15/2016 08:49:00 Document Registration [id number] 12/15/2012 12:41:00 Document Registration [id number] 10/19/2012 08:01:00 Document Registration [id number] 10/14/2012 10:08:00 Document Registration [id number] 12/18/2011 07:49:00 Document Registration [id number] 12/15/2011 09:24:00 Document Registration [id number] 10/21/2011 07:50:00 Document Registration
[2019-03-25] MEDS ORDERED: D5 LR IV SOLUTION 1,000 ML IV ONE (06:58)
[2019-03-25] MEDS ORDERED: D5 LR IV SOLUTION 1,000 ML IV STA (07:03)
[2019-03-25] MEDS ORDERED: HURRICAINE EXT TUBE (BENZOCAINE) XX PRN (07:15)
[2019-03-25] MEDS ORDERED: fentaNYL INJECTION 100 MCG/2 ML AMP IVP ONE (07:15)
[2019-03-25] MEDS ORDERED: MIDAZOLAM 2 MG/2 ML (VERSED) VIAL IVP ONE (07:15)
[2019-03-25] MEDS ORDERED: LIDOCAINE JELLY 2% 6 ML SYRINGE MM PRN (07:15)
[2019-03-25 07:19] VITALS: BP 148/79
[2019-03-25] MEDS ORDERED: fentaNYL INJECTION 100 MCG/2 ML AMP ONE (07:43)
[2019-03-25] MEDS ORDERED: MIDAZOLAM 2 MG/2 ML (VERSED) VIAL ONE ×3 (07:43→07:59)
[2019-03-25] MEDS ORDERED: LIDOCAINE JELLY 2% 6 ML SYRINGE ONE (07:43)
[2019-03-25] MEDS ORDERED: HURRICAINE EXT TUBE (BENZOCAINE) ONE (08:06)
[2019-03-25 08:55] VITALS: BP 127/70
--- NOTE | 2019-03-25 09:22 | Pre-Op Note & Conscious Sedat ---
Pre-Operative Progress Note H&P Reviewed The H&P was reviewed, patient examined and no changes noted. Date H&P Reviewed: March 25, 2019 Time H&P Reviewed: 07:40 Conscious Sedation Pre-Proced ASA Score 2 For ASA 3 and 4: Consider anesthesia and medical clearance. Also, for patients with a history of failed moderate sedation consider anesthesia. Airway Lungs Heart ASA score ASA 1: a normal healthy patient ASA 2: a patient with a mild systemic disease (mid diabetes, controlled hypertension, obesity ASA 3: a patient with a severe systemic disease that limits activity (angina , COPD, prior Myocardial infarction) ASA 4: a patient with an incapacitating disease that is a constant threat to life (CHF, renal failure) ASA 5: a moribund patient not expected to survive 24 hrs. (ruptured aneurysm) ASA 6: a declared brain- patient whose organs are being harvested. For emergent operations, add the letter E after the classification Mallampati Classification Grade 1 Sedation Plan Analgesia, Amnesia, Plan communicated to team members, Discussed options with patient/fam, Discussed risks with patient/fam The patient is an appropriate candidate to undergo the planned procedure, sedation, and anesthesia. The patient immediately re-assessed prior to indication. DAVE HOLDER MD March 25, 2019 09:21
[2019-03-25 09:25] VITALS: BP 136/85
[2019-03-25 10:27] VITALS: BP 136/85
--- NOTE | 2019-03-25 14:09 | OPERATIVE REPORT ---
DATE OF SERVICE: The patient underwent panendoscopy for surveillance purposes due to history of long segment Valdovinos's and past history of Hodgkin's lymphoma recurrence diagnosed in the transverse colon for which the patient underwent resection and chemotherapy. The patient was placed in the left lateral decubitus position. Prior to undergoing colonoscopy, digital rectal evaluation was performed. Anal sphincter tone was normal and the perianal reflexes intact. Prostate was unremarkable on digital inspection. No nodularity was noted. No tenderness was reported. No abnormalities on digital inspection of anal canal or distal rectal vault. Colonoscope was then inserted into the rectum under direct visualization, advanced to the cecum. The cecum was identified by identification of the ileocecal valve and cecal strap. Photographic documentation was obtained. Careful inspection was made as the colonoscope was withdrawn. Quality of the prep was good. FINDINGS: There is no evidence for internal or external hemorrhoids. Present in the distal rectum was a 2 mm sessile hyperplastic appearing polyp, was biopsied and ablated with no subsequent blood loss. Remainder of the rectum was unremarkable. The sigmoid colon was unremarkable except for moderate diverticular disease noted in the mid and proximal sigmoid colon without evidence for diverticulitis. The descending colon and splenic flexure as well as transverse colon were unremarkable except for an unremarkable end to end colonic resection margin. The hepatic flexure, ascending colon, cecum and 5 cm of terminal ileum were unremarkable to gross inspection as well. ASSESSMENT: One diminutive hyperplastic appearing polyp was removed from the distal rectum. Moderate diverticular disease confined to the sigmoid colon predominantly mid and proximal segments was present without evidence for diverticulitis. No other evidence for neoplasia was identified and no other abnormalities were noted. As long as there is no surprise on histopathology report, we would advocate consideration for repeat surveillance colonoscopy in 5 years. I then proceeded with EGD evaluation. The endoscope was inserted in the oral cavity under direct visualization, esophagus was intubated. The endoscope was passed down the esophagus through the stomach and second portion of the duodenum. Careful inspection was made as the endoscope withdrawn. The patient tolerated the procedure well. FINDINGS: Again noted beginning at 32 cm from the incisoral orifice was rather uniform looking [place] colored mucosa with proximal placement of the GE junction. No nodularity or ulceration was noted. Four quadrant biopsies were obtained from the proximally placed GE junction at 32 cm, at 35 to 36 cm and at 40 cm and submitted for histopathology. Again noted was a small sliding hiatal hernia with evidence for sphincter laxity during the procedure. The cardia, fundus and antrum of the stomach as well as the pylorus, pyloric channel, duodenal bulb and second portion of duodenum were unremarkable with no evidence for peptic ulcer disease, gastritis or duodenitis. ASSESSMENT: Today's endoscopic findings were unchanged from previous findings, which include long segment Valdovinos's involving the distal 8 cm of esophagus with a small sliding hiatal hernia and evidence for sphincter laxity. There was no evidence for erosive esophagitis and four quadrant biopsies were noted from three levels as per above. As long as there is no evidence for high grade dysplasia, we will be abdicating repeat surveillance EGD in 1 to 2 years. Job ID: [id number] DocumentID: [id number] Dictated Date: 03/25/2019 09:36:58 Acid Cutter Date: 03/25/2019 14:08:38 Dictated By: DAVE HOLDER MD [facility]TDD
== END 2019-03-25 09:45 | disposition home or self-care (01) ==
LOC: ENDO 06:44
PROVIDERS: ATTEND Internal Medicine
DX: K62.1 Rectal polyp (principal); K57.30 Diverticulosis of large intestine without perforation or abscess without bleeding; K22.710 Barrett's esophagus with low grade dysplasia; K44.9 Diaphragmatic hernia without obstruction or gangrene; C81.99 Hodgkin lymphoma, unspecified, extranodal and solid organ sites; Z79.899 Other long term (current) drug therapy

== ENCOUNTER → 2019-12-12 | Outpatient (CLI) | payer MEDICARE, OTHER ==
[~2019-12-12] MED LIST changes: +OMEP-280 PO; -OMEP20CA12 PO
[2019-12-12 08:56] LABS: BASOPHILS # (AUTO) 0.1 10^3/uL (0.0-0.1); BASOPHILS % (AUTO) 1 % (0-10); EOSINOPHILS # (AUTO) 0.2 10^3/uL (0.0-0.3); EOSINOPHILS % (AUTO) 3 % (0-10); HEMATOCRIT 46 % (40-54); HEMOGLOBIN 15.2 G/DL (13.3-17.7); LYMPHOCYTES # (AUTO) 1.9 X 10^3 (1.0-4.0); LYMPHOCYTES % (AUTO) 33 % (12-44); MEAN CORPUSCULAR HEMOGLOBIN 30 PG (25-34); MEAN CORPUSCULAR HGB CONC 33 G/DL (32-36); MEAN CORPUSCULAR VOLUME 90 FL (80-99); MEAN PLATELET VOLUME 9.5 FL (7.4-10.4); MONOCYTES % (AUTO) 17 % (0-12); NEUTROPHILS # (AUTO) 2.7 X 10^3 (1.8-7.8); NEUTROPHILS % (AUTO) 46 % (42-75); PLATELET COUNT 304 10^3/uL (130-400); RED CELL DISTRIBUTION WIDTH 15.1 % (10.0-14.5); WHITE BLOOD COUNT 5.8 10^3/uL (4.3-11.0)
[2019-12-12 09:28] LABS: ALANINE AMINOTRANSFERASE 23 U/L (0-55); ALBUMIN 3.9 GM/DL (3.2-4.5); ALKALINE PHOSPHATASE 77 U/L (40-136); BILIRUBIN,TOTAL 0.3 MG/DL (0.1-1.0); BUN/CREATININE RATIO 17; CARBON DIOXIDE 27 MMOL/L (21-32); CHLORIDE 105 MMOL/L (98-107); CREATININE SERUM 0.83 MG/DL (0.60-1.30); GFR ESTIMATED > 60; GLUCOSE 97 MG/DL (70-105); SODIUM 140 MMOL/L (135-145); TOTAL PROTEIN 7.1 GM/DL (6.4-8.2)
== END ==
LOC: EDSTATUS 03-14 08:42 → ONC 08:43
PROVIDERS: ATTEND Internal Medicine Hematology & Oncology
DX: Z08 Encounter for follow-up examination after completed treatment for malignant neoplasm (principal); Z85.72 Personal history of non-Hodgkin lymphomas; Z85.828 Personal history of other malignant neoplasm of skin; I10 Essential (primary) hypertension; E03.9 Hypothyroidism, unspecified; E78.5 Hyperlipidemia, unspecified; Z79.899 Other long term (current) drug therapy
CPT/HCPCS: 80053; 83615; 84443; 85025; 99213

== ENCOUNTER 2020-04-04 11:49 | Outpatient (CLI) | payer MEDICARE, OTHER ==
[~2020-04-04] VITALS: Ht 170.2 cm; Wt 77.3 kg
[~2020-04-04 11:49] MED LIST changes: +ACHD5005 PO; -HYDR-3812 PO; -OMEP-280 PO; +OMEP20CA18 PO
== END 2020-04-04 14:00 ==
LOC: PREOP 11:49
PROVIDERS: ATTEND Internal Medicine
DX: Z01.818 Encounter for other preprocedural examination (principal); Z11.59 Encounter for screening for other viral diseases
CPT/HCPCS: 87635

== ENCOUNTER 2020-04-06 08:52 | Day surgery (SDC) | payer MEDICARE, OTHER ==
--- NOTE | 2020-04-04 18:56 | HISTORY AND PHYSICAL ---
DATE OF SERVICE: EGD HISTORY AND PHYSICAL HISTORY OF PRESENT ILLNESS: The patient was a 69-year-old white male with history of long segment Valdovinos's seen for followup of this. He also has a past history of Hodgkin's lymphoma in the distant past with recurrence in 2006 for which he has been in remission since. It has been a year since his last EGD at which time, he had stable 8 cm of Valdovinos's esophagus involving the distal esophagus with no evidence for severe dysplasia. He reports that he has been feeling well. He has been more physically active which he attributes a 10-pound weight loss too. He has had no night sweats, chills, fever. He has had no dysphagia or heartburn sensation has noted. No melena or bright red blood per rectum and denies bowel habit change. PHYSICAL EXAMINATION: GENERAL: Reveals a well-appearing white male in no acute distress. Weight 170.4 down 10 pounds. VITAL SIGNS: Blood pressure 110/62. CHEST: Clear. CARDIOVASCULAR: Regular rate and rhythm without murmur, S3 or S4. ABDOMEN: Soft, supple without mass, organomegaly or tenderness with well-healed surgical scars. No bruits are noted. No evidence for abdominal aortic aneurysm to palpation is noted. EXTREMITIES: Reveal no cyanosis, clubbing or edema. ASSESSMENT AND PLAN: The patient is set up for surveillance EGD due to long segment Valdovinos's on 04/06/2020. Prep instructions were given, and questions were answered. He will be receiving COVID testing per protocol later today. Job ID: [id number] DocumentID: [id number] Dictated Date: 04/04/2020 18:40:26 Master Automotive Technician Date: 04/04/2020 18:56:29 Dictated By: DAVE HOLDER MD [facility]
[~2020-04-06] VITALS: Ht 170.2 cm; Wt 77.3 kg
[2020-04-06] VITALS (12 sets, daily range): BP systolic 119–154; BP diastolic 62–86
[2020-04-06] MEDS ORDERED: D5 LR IV SOLUTION 1,000 ML IV ONE (08:54)
[2020-04-06] MEDS ORDERED: D5 LR IV SOLUTION 1,000 ML IV STA (09:05)
[2020-04-06] MEDS ORDERED: MIDAZOLAM 5 MG/5 ML (VERSED) VIAL IV PRN (09:15)
[2020-04-06] MEDS ORDERED: LIDOCAINE JELLY 2% 6 ML SYRINGE MM PRN (09:15)
[2020-04-06] MEDS ORDERED: HURRICAINE EXT TUBE (BENZOCAINE) XX PRN (09:15)
[2020-04-06] MEDS ORDERED: fentaNYL INJECTION 100 MCG/2 ML AMP IVP ONE (09:15)
[2020-04-06] MEDS ORDERED: LIDOCAINE JELLY 2% 6 ML SYRINGE ONE (09:32)
[2020-04-06] MEDS ORDERED: fentaNYL INJECTION 100 MCG/2 ML AMP ONE (09:33)
[2020-04-06] MEDS ORDERED: HURRICAINE EXT TUBE (BENZOCAINE) ONE (09:33)
[2020-04-06] MEDS ORDERED: MIDAZOLAM 5 MG/5 ML (VERSED) VIAL ONE (09:33)
--- NOTE | 2020-04-06 10:40 | Pre-Op Note & Conscious Sedat ---
Pre-Operative Progress Note H&P Reviewed The H&P was reviewed, patient examined and no changes noted. Date H&P Reviewed: April 06, 2020 Time H&P Reviewed: 09:30 Conscious Sedation Pre-Proced ASA Score 2 For ASA 3 and 4: Consider anesthesia and medical clearance. Also, for patients with a history of failed moderate sedation consider anesthesia. Airway Lungs Heart ASA score ASA 1: a normal healthy patient ASA 2: a patient with a mild systemic disease (mid diabetes, controlled hypertension, obesity ASA 3: a patient with a severe systemic disease that limits activity (angina, COPD, prior Myocardial infarction) ASA 4: a patient with an incapacitating disease that is a constant threat to life (CHF, renal failure) ASA 5: a moribund patient not expected to survive 24 hrs. (ruptured aneurysm) ASA 6: a declared brain- patient whose organs are being harvested. For emergent operations, add the letter E after the classification Mallampati Classification Grade 1 Sedation Plan Analgesia, Amnesia, Plan communicated to team members, Discussed options with patient/fam, Discussed risks with patient/fam The patient is an appropriate candidate to undergo the planned procedure, sedation, and anesthesia. The patient immediately re-assessed prior to indication. DAVE HOLDER MD April 06, 2020 10:40
--- NOTE | 2020-04-06 19:28 | OPERATIVE REPORT ---
DATE OF SERVICE: EDG SUMMARY INDICATION FOR THE PROCEDURE: Surveillance, history of a long segment Valdovinos's. DESCRIPTION OF PROCEDURE: The patient was placed in the left lateral decubitus position. The endoscope was inserted into the oral cavity and under direct visualization, the esophagus was intubated. Endoscope was passed down the esophagus, stomach and into the second portion of the duodenum. A careful inspection was made as the endoscope was withdrawn. The patient tolerated the procedure well. FINDINGS: The posterior pharynx, arytenoid aperture, true and false vocal folds were unremarkable on gross inspection. Proximal and mid esophagus were unremarkable. Again noted and appearing to be stable in length beginning 32 cm from the incisoral orifice or changes compatible with Valdovinos's involving the distal 8 cm of the esophagus. There was no evidence for ulceration or nodularity. Four quadrant biopsies were obtained from 32 cm, 36 and 40 cm from the incisoral orifice and the tissue was submitted for histopathology. A small hiatal hernia was again noted. The cardia, fundus, antrum, pylorus, pyloric channel, duodenal bulb and second portion of duodenum were unremarkable with no evidence for erosions or inflammatory change or peptic ulcer disease. ASSESSMENT: Long segment Valdovinos's appears unchanged to gross inspection with no evidence for malignancy on gross inspection. Four quadrant biopsies were obtained from the proximal esophageal margin 32 cm, from the incisoral orifice 36 and 40 cm and submitted for histopathology. Again noticed, there was a small hiatal hernia with no evidence for erosive esophagitis. No other abnormalities were noted on today's procedure. The patient has been getting up several times at night to urinate. Digital evaluation of the prostate was performed and compatible with moderate BPH. No nodularities or tenderness was noted. We did discuss BPH issues. Treatment was offered, but he is able to go back to sleep, not having as much difficulty during the day and did not want to add to his medication list. The issue could be readdressed if symptoms are getting worse. Currently, he has not had problems with urinary tract infection and feels as though he is emptying completely in regards to urination. Job ID: [id number] DocumentID: [id number] Dictated Date: 04/06/2020 11:03:28 Permit Coordinator Date: 04/06/2020 19:27:42 Dictated By: DAVE HOLDER MD [facility]
== END 2020-04-06 11:07 | disposition home or self-care (01) ==
LOC: ENDO 08:52
PROVIDERS: ATTEND Internal Medicine
DX: K22.70 Barrett's esophagus without dysplasia (principal); K44.9 Diaphragmatic hernia without obstruction or gangrene; Z85.71 Personal history of Hodgkin lymphoma
CPT/HCPCS: 88305

== ENCOUNTER → 2020-12-17 | Outpatient (CLI) | payer MEDICARE, OTHER ==
[2020-12-17 09:05] LABS: BASOPHILS # (AUTO) 0.1 10^3/uL (0.0-0.1); BASOPHILS % (AUTO) 1 % (0-10); EOSINOPHILS # (AUTO) 0.3 10^3/uL (0.0-0.3); EOSINOPHILS % (AUTO) 4 % (0-10); HEMATOCRIT 49 % (40-54); HEMOGLOBIN 15.9 g/dL (13.3-17.7); LYMPHOCYTES # (AUTO) 2.2 10^3/uL (1.0-4.0); LYMPHOCYTES % (AUTO) 34 % (12-44); MEAN CORPUSCULAR HEMOGLOBIN 30 pg (25-34); MEAN CORPUSCULAR HGB CONC 33 g/dL (32-36); MEAN CORPUSCULAR VOLUME 92 fL (80-99); MEAN PLATELET VOLUME 9.4 fL (9.0-12.2); MONOCYTES # (AUTO) 0.9 10^3/uL (0.0-1.0); MONOCYTES % (AUTO) 14 % (0-12); NEUTROPHILS # (AUTO) 2.9 10^3/uL (1.8-7.8); NEUTROPHILS % (AUTO) 46 % (42-75); PLATELET COUNT 334 10^3/uL (130-400); WHITE BLOOD COUNT 6.3 10^3/uL (4.3-11.0)
[2020-12-17 09:23] LABS: ALANINE AMINOTRANSFERASE 22 U/L (0-55); ALKALINE PHOSPHATASE 80 U/L (40-136); BILIRUBIN,TOTAL 0.5 MG/DL (0.1-1.0); BUN/CREATININE RATIO 13; CALCIUM 9.2 MG/DL (8.5-10.1); CARBON DIOXIDE 26 MMOL/L (21-32); CHLORIDE 103 MMOL/L (98-107); CREATININE SERUM 0.96 MG/DL (0.60-1.30); GFR ESTIMATED > 60; GLUCOSE 89 MG/DL (70-105); POTASSIUM 4.1 MMOL/L (3.6-5.0); SODIUM 140 MMOL/L (135-145); TOTAL PROTEIN 7.5 GM/DL (6.4-8.2)
== END ==
LOC: ONC 08:43
PROVIDERS: ATTEND Internal Medicine Hematology & Oncology
DX: C81.99 Hodgkin lymphoma, unspecified, extranodal and solid organ sites (principal); N40.0 Benign prostatic hyperplasia without lower urinary tract symptoms; K22.70 Barrett's esophagus without dysplasia; I10 Essential (primary) hypertension; E78.5 Hyperlipidemia, unspecified; E03.9 Hypothyroidism, unspecified; Z92.3 Personal history of irradiation; Z98.890 Other specified postprocedural states; Z90.81 Acquired absence of spleen; Z92.21 Personal history of antineoplastic chemotherapy
CPT/HCPCS: 80053; 83615; 85025; G0103; G0463; 84153; 99213

== ENCOUNTER 2021-02-19 19:26 | Emergency (ER) | payer MEDICARE, OTHER ==
[~2021-02-19] VITALS: Ht 175.2 cm; Wt 83.9 kg
[2021-02-19] MEDS ORDERED: TETRACAINE 0.5% OPHTH SOLN 4 ML BTL (SINGLE DOSE ONLY) OU ONE (20:15)
[2021-02-19] MEDS ORDERED: FLUORESCEIN (FLUOR-I-STRIPS) 1 MG STRP OU ONE (20:15)
--- NOTE | 2021-02-19 20:16 | ED EENT ---
History of Present Illness General Chief Complaint: Eye Problems Stated Complaint: L EYE RED AFTER YARDWORK Source: patient Exam Limitations: no limitations History of Present Illness Date Seen by Provider: Feb 19, 2021 Time Seen by Provider: 19:56 Initial Comments Here with report of left eye pain and redness after working out in the yard today. States that grass and dust was blowing around. He feels like he had something in there and flushed it out and thought he had it but then his eye started turning more red and irritated. Ultimately he decided to come in for further evaluation. Denies vision problems or purulent drainage. Denies other injury or concerns. Does admit to allergies. Timing/Duration: abrupt Location: eye (L) Prearrival Treatment: flushing eyes Associated Symptoms: No facial pain/swelling, No fever; nasal congestion/drainage Allergies and Home Medications Allergies Coded Allergies: No Known Drug Allergies (Unverified , 03/08/18) Home Medications Levothyroxine Sodium 125 Mcg Tablet, 125 MCG PO DAILY, (Reported) Omeprazole 20 Mg Capsule.dr, 20 MG PO BID, (Reported) Patient Home Medication List Home Medication List Reviewed: Yes Review of Systems Review of Systems Constitutional: see HPI; No chills, No fever Eyes: See HPI Past Whgurxw-Iraqti-Morahf Hx Patient Social History Type Used: Cigarettes Former Smoker, Quit: Dec 15, 1975 Recent Hopitalizations: No Immunizations Up To Date Tetanus Booster (TDap): Unknown PED Vaccines UTD: No Date of Pneumonia Vaccine: Oct 13, 2012 Date of Influenza Vaccine: Sep 13, 2019 Seasonal Allergies Seasonal Allergies: No Past Medical History Surgeries: Yes (BOWEL RESECTION, MASS REMOVED FROM CHEST, L finger fx) Abdominal, Bowel Surgery Respiratory: No Currently Using CPAP: No Currently Using BIPAP: No Cardiac: No Hypertension Neurological: No Reproductive Disorders: No Sexually Transmitted Disease: No HIV/AIDS: No Genitourinary: No Gastrointestinal: Yes (HX OF BOWEL RESECTION ) Valdovinos's Esophagus Musculoskeletal: Yes (GEN. ARTHRITIS, LEFT HAND INJURY) Arthritis Endocrine: Yes Hypothyroidsim HEENT: Yes Hearing Impairment: Hard of Hearing Cancer: Yes (HODGKIN'S ) Lymphoma What Type of Treatment Did You: Chemotherapy Psychosocial: No Integumentary: No Blood Disorders: No Adverse Reaction/Blood Tranf: No Family Medical History Reviewed Nursing Family Hx Physical Exam Height, Weight, BMI Height: 5'8.00" Weight: 168lbs. 0.0oz. [id number]; 26.68 BMI Method:Stated General Appearance: WD/WN, no apparent distress Eyes: right eye normal inspection; left eye conjunctival inflammation; bilateral eye PERRL, bilateral eye EOMI Cardiovascular: regular rate, rhythm, no murmur Respiratory: lungs clear, normal breath sounds Neurologic/Psychiatric: alert, oriented x 3 Skin: normal color, warm/dry Progress/Results/Core Measures Results/Orders My Orders Orders - ABDULLAHI SEWELL MD Tetracaine 0.5% Ophth Albina Sdv (Tetracai (02/19/21 20:15) Fluorescein Strips ([id number]-[id number]) (02/19/21 20:15) Progress Progress Note : Progress Note Seen and evaluated. Tetracaine drop to the left eye. Fluorescein stain. Bauer lamp evaluation. Question 1 possible foreign body to the lower lid that was easily removed and actually may have been mucus. No obvious corneal abrasions. Pain better after tetracaine. We will give Toradol 30 mg IM for some mild residual pain. Tobramycin gtts for left eye as he is quite inflamed. I did discuss with him about follow-up with eye doctor tomorrow. He will call Dr. Garcia's office in the morning for follow-up. Visual acuities done. 20/30 both, 20/30 left, 20/40 right. Discharged home with return precautions. Patient verbalized understanding instructions and agreement with plan. Departure Impression Primary Impression: Allergic conjunctivitis of left eye Disposition: 01 HOME, SELF-CARE Condition: Improved Departure-Patient Inst. Decision time for Depature: 20:24 Referrals: DAVE HOLDER MD (PCP/Family) Primary Care Physician RACHEL GARCIA OD Patient Instructions: Conjunctivitis (Noninfectious Pinkeye) (DC) Add. Discharge Instructions: All discharge instructions reviewed with patient and/or family. Voiced understanding. Follow-up with eye doctor listed or of your choice tomorrow. You may call Dr. Garcia's office and follow-up with any available eye doctor tomorrow. Let them know that you were seen in the emergency department and we are recommending close follow-up. Return for worse pain, vision changes, weakness or other concerns as needed. You may take Tylenol/acetaminophen as needed for pain control. Copy Copies To 1: RACHEL GARCIA OD, TIMOTHY D MD Feb 19, 2021 20:15
[2021-02-19] MEDS ORDERED: RX-TOBRAMYCIN 0.3% OPHTH (TOBREX) SOLN 5 ML BTL OP STA (20:20)
[2021-02-19] MEDS ORDERED: KETOROLAC 30 MG/ML VIAL IM STA (20:20)
[2021-02-19 21:25] VITALS: BP 128/72
== END 2021-02-19 21:25 | disposition home or self-care (01) ==
LOC: EDUNIT# 19:26 → ER 19:28
DX: H10.12 Acute atopic conjunctivitis, left eye (principal); I10 Essential (primary) hypertension; E03.9 Hypothyroidism, unspecified; Z85.71 Personal history of Hodgkin lymphoma; Z87.891 Personal history of nicotine dependence; Z79.890 Hormone replacement therapy
CPT/HCPCS: 96372; 99284

== ENCOUNTER 2022-01-01 05:28 | Outpatient (RCR) | payer MEDICARE, OTHER ==
[~2022-01-01] VITALS: Ht 172.7 cm; Wt 83.9 kg
== END 2022-01-01 13:29 | disposition home or self-care (01) ==
LOC: PREOP 05:28
PROVIDERS: ATTEND Internal Medicine
DX: Z01.812 Encounter for preprocedural laboratory examination (principal); K22.70 Barrett's esophagus without dysplasia; Z20.822 Contact with and (suspected) exposure to COVID-19
CPT/HCPCS: 87635

== ENCOUNTER 2022-01-03 08:04 | Day surgery (SDC) | payer MEDICARE, OTHER ==
--- NOTE | 2021-12-27 15:33 | HISTORY AND PHYSICAL ---
DATE OF SERVICE: EGD HISTORY AND PHYSICAL DATE OF ADMISSION: 01/03/2022 HISTORY OF PRESENT ILLNESS: The patient was seen for followup of long segment Valdovinos's with low-grade dysplasia. He last underwent upper endoscopy in 03/2020. In reviewing his endoscopic record, there was little change with no evidence for erosive esophagitis and continued low-grade dysplasia with about 8 cm of distal esophageal involvement. He last underwent colonoscopy in 03/2019. No neoplasia was identified and a 5-year screening recommendation was made. Reports that he has been feeling well. He continues proton pump inhibitor therapy. Denying heartburn, which has never been much of an issue with him and also denies dysphagia. He has had no melena or bright red blood per rectum. PAST MEDICAL HISTORY: Significant for Hodgkin's disease, initially diagnosed in the . He had recurrence in 2006 with colonic and liver involvement. 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 By 01/2007, he completed seven cycles of Adriamycin, vinblastine, and DTIC and has been in remission since. He has had no night sweats, chills, fever. Reports normal energy level. PHYSICAL EXAMINATION: GENERAL: Reveals a well-appearing white male, in no acute distress. VITAL SIGNS: Blood pressure 130/80. HEENT: Unremarkable. Sclerae nonicteric. CHEST: Clear to auscultation. CARDIOVASCULAR: Reveals regular rate and rhythm without murmur, S3 or S4. ABDOMEN: Soft, supple without mass, organomegaly or tenderness. Well-healed midline abdominal incision. ASSESSMENT AND PLAN: 1. For followup of long segment Valdovinos's with low-grade dysplasia, the patient is being set up for EGD evaluation. He will not be due for colonoscopy until 2023. Prep instructions were given and questions answered. 2. 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 On return, will need repeat TSH in 6 months. 3. Not mentioned above, the patient was noted to have mild PSA elevation in the mid 5 range in the fall. He has undergone urologic evaluation. It has been stable per his report and it is felt to be due to BPH by his urologist and he is undergoing surveillance for this. Job ID: [id number] DocumentID: [id number] Dictated Date: 12/26/2021 15:24:58 Tape Transferrer Date: 12/26/2021 16:35:40 Dictated By: DAVE HOLDER MD
[~2022-01-03] VITALS: Ht 173 cm; Wt 83.9 kg
[2022-01-03] MEDS ORDERED: LACTATED RINGERS 1,000 ML IV ONE (08:10)
[2022-01-03] MEDS ORDERED: LACTATED RINGERS 1,000 ML IV STA (08:11)
[2022-01-03 08:15] VITALS: BP 129/88
[2022-01-03] MEDS ORDERED: LIDOCAINE JELLY 2% 6 ML SYRINGE MM PRN (08:15)
[2022-01-03] MEDS ORDERED: HURRICAINE EXT TUBE (BENZOCAINE) XX PRN (08:15)
[2022-01-03] MEDS ORDERED: proPOfol 200 MG/20 ML (DIPRIVAN) VIAL IV ONE ×2 (08:58→09:16)
--- NOTE | 2022-01-03 09:01 | Pre-Op Note & Conscious Sedat ---
Pre-Operative Progress Note H&P Reviewed The H&P was reviewed, patient examined and no changes noted. Date H&P Reviewed: Jan 03, 2022 Time H&P Reviewed: 08:30 Conscious Sedation Pre-Proced ASA Score 2 For ASA 3 and 4: Consider anesthesia and medical clearance. Also, for patients with a history of failed moderate sedation consider anesthesia. Airway Lungs Heart ASA score ASA 1: a normal healthy patient ASA 2: a patient with a mild systemic disease (mid diabetes, controlled hypertension, obesity ASA 3: a patient with a severe systemic disease that limits activity (angina, COPD, prior Myocardial infarction) ASA 4: a patient with an incapacitating disease that is a constant threat to life (CHF, renal failure) ASA 5: a moribund patient not expected to survive 24 hrs. (ruptured aneurysm) ASA 6: a declared brain- patient whose organs are being harvested. For emergent operations, add the letter E after the classification Mallampati Classification Grade 1 Sedation Plan Analgesia, Amnesia, Plan communicated to team members, Discussed options with patient/fam, Discussed risks with patient/fam The patient is an appropriate candidate to undergo the planned procedure, sedation, and anesthesia. The patient immediately re-assessed prior to indication. DAVE HOLDER MD Jan 03, 2022 09:01
--- NOTE | 2022-01-03 09:24 | Anesthesia-General Post-Op ---
MAC Patient Condition Mental Status/LOC: Same as Preop Cardiovascular: Satisfactory Nausea/Vomiting: Absent Respiratory: Satisfactory Pain: Controlled Complications: Absent Post Op Complications Complications None Follow Up Care/Instructions Patient Instructions None needed. Anesthesiology Discharge Order Discharge Order Patient is doing well, no complaints, stable vital signs, no apparent adverse anesthesia problems. No complications reported per nursing. JATIN CHAMBERLAIN CRNA Jan 03, 2022 09:24
[2022-01-03 09:25] VITALS: BP 109/59
[2022-01-03 09:30] VITALS: BP 113/63
[2022-01-03 09:50] VITALS: BP 142/80
--- NOTE | 2022-01-03 14:28 | OPERATIVE REPORT ---
DATE OF SERVICE: EGD SUMMARY INDICATION FOR THE PROCEDURE: Surveillance, history of long segment Valdovinos's esophagus. DESCRIPTION OF PROCEDURE: The patient was placed in the left lateral decubitus position. The endoscope was inserted in the oral cavity and under direct visualization, esophagus was intubated. The endoscope was passed down the esophagus through stomach and second portion of the duodenum. Careful inspection was made as the endoscope was withdrawn. FINDINGS: The posterior pharynx, epiglottis, arytenoid aperture and true and false vocal folds were unremarkable to visual inspection. The proximal and mid esophagus were unremarkable. There is a 2 to 3 cm hiatal hernia and the presumed GE junction was proximally placed at roughly 35 cm from the incisor orifice. Again noted are 7 to 8 cm segment of Valdovinos's esophagus. There was no evidence for ulceration, nodularity erosions or erythema. Four quadrant biopsies were obtained from the presumed GE junction, 32 cm and 28 cm from the incisor orifice. The cardia, fundus, antrum, pylorus, pyloric channel, duodenal bulb and second portion of duodenum were unremarkable to visual inspection. No fundal polyps were noted. ASSESSMENT: Long segment Valdovinos's unchanged, distal 7 to 8 cm of esophagus involved with no other significant findings to gross inspection. Four quadrant biopsies were noted from 3 locations as noted above. The patient may has 2 to 3 cm hiatal hernia and the GE junction was proximally placed secondary to this 35 cm from incisor orifice. This was an otherwise normal EGD. We will await histopathology before making future surveillance recommendations. Job ID: [id number] DocumentID: [id number] Dictated Date: 01/03/2022 09:33:40 Film Crew Member Date: 01/03/2022 14:26:59 Dictated By: DAVE HOLDER MD [facility]
== END 2022-01-03 10:08 | disposition home or self-care (01) ==
LOC: ENDO 08:04
PROVIDERS: ATTEND Internal Medicine
DX: K22.70 Barrett's esophagus without dysplasia (principal); K44.9 Diaphragmatic hernia without obstruction or gangrene; R97.20 Elevated prostate specific antigen [PSA]; N40.0 Benign prostatic hyperplasia without lower urinary tract symptoms; E03.9 Hypothyroidism, unspecified; Z85.71 Personal history of Hodgkin lymphoma; Z79.890 Hormone replacement therapy
CPT/HCPCS: 88305

== ENCOUNTER 2022-07-23 05:35 | Outpatient (CLI) | payer MEDICARE, OTHER ==
[~2022-07-23] VITALS: Ht 172.7 cm; Wt 77.6 kg
== END 2022-07-23 08:53 | disposition home or self-care (01) ==
LOC: PREOP 05:35
PROVIDERS: ATTEND Internal Medicine
DX: Z01.818 Encounter for other preprocedural examination (principal)

== ENCOUNTER 2022-08-01 07:24 | Day surgery (SDC) | payer MEDICARE, OTHER ==
--- NOTE | 2022-07-23 08:54 | HISTORY AND PHYSICAL ---
DATE OF SERVICE: EGD HISTORY AND PHYSICAL HISTORY OF PRESENT ILLNESS: The patient is a 72-year-old white male with a history of long segment Valdovinos's. His last EGD was done 2 years ago. He has a history of Hodgkin's lymphoma with recurrence, although his last recurrence has been 15 years ago with no subsequent evidence for recurrence. He reports all in all, he has been feeling well. His weight was down 7.8 pounds, but he reports because he has been dizzy working quite a bit through the summer. He denies fatigue, abdominal pain, dysphagia, melena, or bright red blood per rectum. He has had no night sweats, chills or fever with reportedly good energy level stable. PHYSICAL EXAMINATION: GENERAL: Reveals a white male, appears to be in no acute distress. VITAL SIGNS: Weight 171 pounds, blood pressure 130/80. CHEST: Clear. CARDIOVASCULAR: Reveals regular rate and rhythm without murmur, S3 or S4. ABDOMEN: Soft, supple without mass, organomegaly or tenderness. EAR: Canals clear with normal TMs. EXTREMITIES: Reveal no cyanosis, clubbing or edema. He did have an area on the upper cheek very suspicious for underlying basal cell. He had an appointment later on with fuels engineer who had done some cryotherapy in the past. This did not obviously resulted in clearing. ASSESSMENT AND PLAN: 1. History of long segment Valdovinos's. The patient is being set up for surveillance EGD. 2. Hodgkin's lymphoma, 13 years out from a second recurrence with no evidence for recurrence and no B symptoms. 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 Discussed with the patient that this needed to be surgically excised as it had more typical appearance of a basal cell that was not going to respond to cryotherapy. He will address this with his fuels engineer later today. I will see him back for routine followup in 6 months with EGD scheduled for later this month. Job ID: [id number] DocumentID: [id number] Dictated Date: 07/16/2022 16:18:03 Treasury Agent Date: 07/16/2022 16:37:10 Dictated By: DAVE HOLDER MD
[~2022-08-01] VITALS: Ht 172.7 cm; Wt 77.6 kg
[2022-08-01] MEDS ORDERED: LACTATED RINGERS 1,000 ML IV STA (07:33)
[2022-08-01 07:40] VITALS: BP 109/66
[2022-08-01] MEDS ORDERED: HURRICAINE EXT TUBE (BENZOCAINE) XX PRN (07:45)
--- NOTE | 2022-08-01 07:49 | Pre-Op Note & Conscious Sedat ---
Pre-Operative Progress Note Date H&P Reviewed: Aug 01, 2022 Time H&P Reviewed: 07:49 History & Physical: H&P Reviewed, Patient Examed, No changes noted Pre-Op Diagnosis: forte's surviellance Conscious Sedation Pre-Proced ASA Score 2 For ASA 3 and 4: Consider anesthesia and medical clearance. Also, for patients with a history of failed moderate sedation consider anesthesia. Airway Lungs Heart ASA score ASA 1: a normal healthy patient ASA 2: a patient with a mild systemic disease (mid diabetes, controlled hypertension, obesity ASA 3: a patient with a severe systemic disease that limits activity (angina, COPD, prior Myocardial infarction) ASA 4: a patient with an incapacitating disease that is a constant threat to life (CHF, renal failure) ASA 5: a moribund patient not expected to survive 24 hrs. (ruptured aneurysm) ASA 6: a declared brain- patient whose organs are being harvested. For emergent operations, add the letter E after the classification Mallampati Classification Grade 1 Sedation Plan Analgesia, Amnesia, Plan communicated to team members, Discussed options with patient/fam, Discussed risks with patient/fam The patient is an appropriate candidate to undergo the planned procedure, sedation, and anesthesia. The patient immediately re-assessed prior to indication. DAVE HOLDER MD Aug 01, 2022 07:49
[2022-08-01] MEDS ORDERED: PROPOFOL INJECTION 50 ML IV ONE (09:03)
[2022-08-01 09:25] VITALS: BP 82/49
--- NOTE | 2022-08-01 09:27 | Progress Note-Post Operative ---
Post-Procedure Note Physician (s)/Manager Hvac (s) Physician DAVE HOLDER MD Pre-Procedure Diagnosis Pre-Procedure Diagnosis: forte's surviellance Post-Procedure Diagnosis Post-operative diagnosis: stable forte's change bx time 12 obtained 1-2 cm hiatal hernia otherwise normal. DAVE HOLDER MD Aug 01, 2022 09:27
[2022-08-01 09:30] VITALS: BP 74/42
[2022-08-01 09:35] VITALS: BP 75/42
[2022-08-01 09:40] VITALS: BP 83/50
[2022-08-01 09:55] VITALS: BP_SYST 115; BP_SYST 83; BP_DIAS 50; BP_DIAS 67
--- NOTE | 2022-08-01 12:40 | Anesthesia-General Post-Op ---
MAC Patient Condition Mental Status/LOC: Same as Preop Cardiovascular: Satisfactory Nausea/Vomiting: Absent Respiratory: Satisfactory Pain: Controlled Complications: Absent Post Op Complications Complications None Follow Up Care/Instructions Patient Instructions None needed. Anesthesiology Discharge Order Discharge Order Patient is doing well, no complaints, stable vital signs, no apparent adverse anesthesia problems. No complications reported per nursing. LUCILLE SANTANA CRNA Aug 01, 2022 12:40
--- NOTE | 2022-08-01 15:22 | OPERATIVE REPORT ---
DATE OF SERVICE: EGD SUMMARY INDICATION FOR THE PROCEDURE: Surveillance for long segment Valdovinos's. DESCRIPTION OF PROCEDURE: The patient was placed in the left lateral decubitus position. The endoscope was inserted in the oral cavity and under direct visualization, the esophagus was intubated. Endoscope was passed down the esophagus, stomach and second portion of the duodenum. A careful inspection was made as the endoscope was withdrawn. FINDINGS: Proximal and mid esophagus were unremarkable. Noted at 29 cm from the incisor orifice from the beginning of Valdovinos's change without evidence for ulceration, nodularity or overt evidence to suggest underlying malignancy. The patient does have 1 to 2 cm hiatal hernia. The Z line was proximally placed secondary to this roughly estimated at 35 cm from the incisor orifice. Four-quadrant biopsies were obtained from 35, 32 cm and 29 cm for a total of 12 biopsies with no significant bleeding. Several small fundal appearing polyps in the fundus. The cardia, fundus, antrum, pylorus, pyloric channel, duodenal bulb and second portion of duodenum were unremarkable. ASSESSMENT: Again, noted is roughly 7 to 8 cm of Valdovinos's change at the esophagus without overt evidence for malignancy. As noted, four-quadrant biopsies from three levels were obtained and submitted for histopathology with no subsequent surveillance recommendations pending histopathology report. Job ID: [id number] DocumentID: [id number] Dictated Date: 08/01/2022 09:24:07 Clothes Shaker Date: 08/01/2022 15:21:54 Dictated By: DAVE HOLDER MD
== END 2022-08-01 10:25 | disposition home or self-care (01) ==
LOC: ENDO 07:24
PROVIDERS: ATTEND Internal Medicine
DX: K22.70 Barrett's esophagus without dysplasia (principal); K44.9 Diaphragmatic hernia without obstruction or gangrene; C81.90 Hodgkin lymphoma, unspecified, unspecified site; L98.9 Disorder of the skin and subcutaneous tissue, unspecified; K21.9 Gastro-esophageal reflux disease without esophagitis; Z79.899 Other long term (current) drug therapy

== ENCOUNTER 2022-09-04 08:37 | Outpatient (RCR) | payer MEDICARE, OTHER | END 2022-09-08 | disposition home or self-care (01) | PROVIDERS: ATTEND Internal Medicine | DX: M54.50 Low back pain, unspecified (principal) ==

== ENCOUNTER 2022-09-22 11:21 | Outpatient (RCR) | payer MEDICARE, OTHER | END 2022-09-22 11:38 | disposition home or self-care (01) | PROVIDERS: ATTEND Internal Medicine | DX: M54.50 Low back pain, unspecified (principal) ==

== ENCOUNTER → 2023-01-08 | Outpatient (CLI) | payer MEDICARE, OTHER ==
--- NOTE | 2023-01-08 08:51 | Diagnostic Imaging Report ---
INDICATION: Epigastric pain PROCEDURE: Ultrasound abdomen complete. TECHNIQUE: Multiple real-time grayscale images were obtained of the abdomen in various projections. COMPARISON: None FINDINGS: Image examination due to overlying bowel gas. The liver is normal in size and echogenicity. No liver lesions identified. The gallbladder is normal. No pericholecystic fluid. The common bile duct is 0.5 cm. The pancreas, aorta, and IVC are not well seen due to overlying bowel gas. The spleen is absent. Left kidney measures 10.4 x 5.0 x 4.7 cm and has a normal appearance. The right kidney measures 11.0 x 4.9 x 5.1 cm and has a 0.9 cm echogenic focus. Impression: Normal appearance of the liver gallbladder. The left kidney demonstrates a 0.9 cm hyperechogenic lesion which most commonly represents AML, however in a small subset of patients renal cell carcinoma may be hyperechoic. Consider contrast enhanced CT utilizing renal protocol for further evaluation or renal ultrasound in 3 months. Dictated by: Dictated on workstation # [id number]
== END ==
LOC: RAD 07:15
PROVIDERS: ATTEND Internal Medicine
DX: N28.9 Disorder of kidney and ureter, unspecified (principal)
CPT/HCPCS: 76700